=== PATIENT | male | born 1945 | race Caucasian/White ===

== ENCOUNTER 2022-12-16 09:40 | Inpatient (IN) ==
[2022-12-16] MEDS ORDERED: IOPAMIDOL 100 ML BOTTLE IV ONE (09:41)
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
[2022-12-16] MEDS ORDERED: 0.9 % SODIUM CHLORIDE 1,000 ML IV ONE (10:41)
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
[2022-12-16 11:14] LABS: POC Calcium, Ionized 1.12 (1.16-1.32); POC Creatinine 1.1 (0.6-1.2); POC Potassium 4.1 (3.3-5.1)
[2022-12-16 11:57] LABS: Basophils # (Auto) 0.02 K/mcL (0.00-0.30); Basophils % (Auto) 0.3 % (0.0-2.0); Eosinophils # (Auto) 0.19 K/mcL (0.00-0.70); Eosinophils % (Auto) 2.5 % (0.0-7.0); Hematocrit 42.9 % (40.1-51.0); Hemoglobin 14.3 g/dL (13.7-17.5); Lymphocytes # (Auto) 1.05 K/mcL (1.50-4.80); Lymphocytes % (Auto) 13.8 % (15.5-49.0); Mean Cell Volume 90.9 fL (80.0-100.0); Mean Corpuscular HGB Conc 33.3 g/dL (31.0-36.0); Mean Platelet Volume 10.3 fL (8.8-12.5); Monocytes # (Auto) 0.87 K/mcL (0.10-0.90); Monocytes % (Auto) 11.4 % (1.0-12.0); Neutrophils % (Auto) 71.6 % (38.0-78.0); Platelet Count 173 K/mcL (140-440); RBC 4.72 M/mcL (4.63-6.08); Red Cell Distribution Width 13.7 % (11.5-14.5); WBC 7.6 K/mcL (4.5-11.0)
--- NOTE | 2022-12-16 12:03 | Cat Scan Report ---
INDICATION: perineal/scrotal abscess COMPARISON: None. TECHNIQUE: Axial images were obtained through the pelvis. Sagittally and coronally reformatted images. 90 mLml Isovue 370 injected intravenously. Oral contrast material was not administered FINDINGS: Superficial abnormality of the perineum. There is subcutaneous soft tissue density consistent with cellulitis. There is soft tissue gas which is left of the intergluteal crease. This is consistent with necrotizing fasciitis, so-called Nara's gangrene. There is no deep extension to the pelvis or perianal soft tissues. There is no abscess. No intrapelvic abnormality. There is no free fluid or pelvic abscess. Sigmoid colon is negative. There is no diverticulitis. There is diverticulosis. Vascular structures are normal. Distal abdominal aorta is normal. There is calcified plaque in the common iliac arteries and external iliac arteries. There is no stenosis or aneurysm. There is no osteomyelitis. Sacrum and pelvis are negative. Hips are negative. This patient did complain of a possible scrotal abscess. No focal scrotal fluid collection identified. No detectable scrotal abscess. If clinically indicated testicular ultrasound be considered Emergency room was called with these results, 12/16/2022, 12:00 IMPRESSION: 1. 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 Soft tissue gas is to the left of the intergluteal cleft 3. No soft tissue abscess. There is increased density consistent with cellulitis 4. No intrapelvic abnormality The exam was performed using radiation dose optimization techniques including, but not limited to, automated exposure control, adjustment of the mA and/or kV according to patient size and use of iterative reconstruction technique. Interpreted and Authenticated by: Tariq Ruiz 12/16/22
[2022-12-16] MEDS ORDERED: VANCOMYCIN 2,000 MG in 0.9 % SODIUM CHLORIDE 500 ML IV ONE (12:10)
[2022-12-16 12:11] LABS: ALT/SGPT 44 U/L (<40); AST/SGOT 33 U/L (<40); Albumin 3.7 gm/dL (3.2-5.2); Alkaline Phosphatase 68 U/L (39-117); Bilirubin,Direct 0.3 mg/dL (<0.3); Globulin 3.1 gm/dL (2.2-3.7)
[2022-12-16 12:12] LABS: Erythrocyte Sedimentation Rate 34 mm/hr (0-20)
[2022-12-16] MEDS ORDERED: CLINDAMYCIN IN 0.9 % SOD CHLOR 900 MG/50 ML BAG IV ONE (12:13)
[2022-12-16] MEDS ORDERED: MEROPENEM 1 GM in 0.9 % SODIUM CHLORIDE 50 ML IV ONE (12:15)
[2022-12-16] MEDS ORDERED: PHYTONADIONE 10 MG in 0.9 % SODIUM CHLORIDE 50 ML IV ONE (13:25)
[2022-12-16] MEDS ORDERED: HUM PROTHROMBIN CPLX IV ONE (13:25)
[2022-12-16] MEDS ORDERED: [UNRECOGNIZED DRUG - OTHER] IV ONE (13:25)
[2022-12-16 13:27] LABS: INR 2.2 (0.9-1.1); Prothrombin Time 25.2 sec (11.9-14.5)
[2022-12-16] MEDS ORDERED: 0.9 % SODIUM CHLORIDE 250 ML IV SCH ×2 (13:30→13:45)
--- NOTE | 2022-12-16 13:33 | XRay Report ---
INDICATION: PRE OP TECHNIQUE: AP portable semiupright chest x-ray COMPARISON: Previous chest x-ray dated 11/08/2022 FINDINGS: Lungs:Lungs are negative. No focal pulmonary parenchymal infiltrate or mass Heart, vascular:No significant cardiomegaly. Pulmonary vascularity is normal. No pulmonary edema or pulmonary congestion Mediastinum, tra:No mediastinal widening. No hilar mass Pleura:Mildly elevated right hemidiaphragm, chronic Skeletal:Negative. IMPRESSION: 1. Negative AP chest x-ray 2. No interval change since 11/08/2022 Interpreted and Authenticated by: Tariq Ruiz 12/16/22
[2022-12-16 13:41] LABS: POC INR 2.9 (0.8-1.2); POC Pro Time 32.8 (11.9-14.5)
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
[2022-12-16] MEDS ORDERED: [UNRECOGNIZED DRUG - OTHER] IV SCH (13:45)
[2022-12-16] MEDS ORDERED: HUM PROTHROMBIN CPLX IV SCH (13:45)
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
[2022-12-16] MEDS ORDERED: POTASSIUM CHLORIDE 40 MEQ in DEXTROSE 5% IN WATER 500 ML IV PRN (14:05)
[2022-12-16] MEDS ORDERED: SENNOSIDES 1 TABLET PO PRN (14:05)
[2022-12-16] MEDS ORDERED: MAGNESIUM SULFATE 2 GM/50 ML BAG IV PRN (14:05)
[2022-12-16] MEDS ORDERED: POLYETHYLENE GLYCOL 3350 17 GM PACKET PO PRN (14:05)
[2022-12-16] MEDS ORDERED: ONDANSETRON 4 MG/2 ML VIAL IV PRN ×2 (14:05→16:54)
[2022-12-16] MEDS ORDERED: POTASSIUM CHLORIDE 20 MEQ TABLET PO PRN ×2 (14:05)
[2022-12-16 14:28] LABS: Appearance,Urine CLEAR (Clear); Bilirubin,Urine Negative (Negative); Color,Urine YELLOW; Culture Indicated,Urine No; Glucose,Urine (UA) Negative (Negative); Ketones,Urine Negative (Negative); Leukocyte Esterase,Urine Negative /uL (Negative); Mucus,Urine FEW /hpf; Nitrate,Urine Negative (Negative); Protein,Urine 30 mg/dL (Negative); Specific Gravity,Urine 1.055 (1.000-1.035); Urine Blood Negative (Negative); Urine RBC 1 /hpf (0-3); Urine Squamous Epithelial Cell < 1 /hpf (0-4); Urine WBC 1 /hpf (0-4)
[2022-12-16 15:59] LABS: POC INR 1.5 (0.8-1.2); POC Pro Time 17.3 (11.9-14.5)
[2022-12-16] MEDS ORDERED: ROCURONIUM 10 MG/ML ML IV ONE (16:18)
[2022-12-16] MEDS ORDERED: PROPOFOL 200 MG/20 ML VIAL IV ONE (16:18)
[2022-12-16] MEDS ORDERED: fentaNYL 100 MCG/2 ML VIAL IV ONE ×2 (16:18→17:34)
[2022-12-16] MEDS ORDERED: SUGAMMADEX SODIUM 200 MG/2 ML VIAL IV ONE (16:18)
[2022-12-16] MEDS ORDERED: ONDANSETRON 4 MG/2 ML VIAL ONE (16:18)
[2022-12-16] MEDS ORDERED: LIDOCAINE HCL/PF 100 MG/5 ML SYRINGE IV ONE (16:18)
[2022-12-16] MEDS ORDERED: HYDROmorphone 1 MG/ML SYRINGE ONE (16:18)
[2022-12-16] MEDS ORDERED: NALOXONE HCL 0.4 MG/ML VIAL IV PRN (16:54)
[2022-12-16] MEDS ORDERED: IPRATROPIUM/ALBUTEROL 3 ML AMPUL.NEB NEB PRN (16:54)
[2022-12-16] MEDS ORDERED: HYDROmorphone 0.5 MG/0.5 ML SYRINGE IV PRN (16:54)
[2022-12-16] MEDS ORDERED: ACETAMINOPHEN 1,000 MG/100 ML BAG IV ONE (16:54)
[2022-12-16] MEDS: fentaNYL 100 MCG/2 ML VIAL IV PRN ×4 (17:34→17:48)
[2022-12-16] MEDS ORDERED: VANCOMYCIN PER PHARMACY IV ONE (18:58)
[2022-12-16] MEDS ORDERED: ALBUTEROL SULFATE 60 PUFF INHALER INH PRN (19:06)
--- NOTE | 2022-12-16 19:15 | Brief Operative Note ---
Brief Operative Note Date of procedure: 12/16/22 Pre-op diagnosis: Nara's Gangrene Post-op diagnosis: same Procedure: Examination Under Anesthesia with Incision, Drainage and Debridement of Perineal Nara's Gangrene Grafts/Implants: No Anesthesia: GETA Findings: Nara's Gangrene with epicenter of infection at the base of the Left Hemiscrotum extending into the Left Inguinal Crease and Left Medial Gluteal Region Debridement of all visible necrotic tissue with extensive unroofing, cultures and packing Complications: none Surgeon: Godwin Murry Estimated blood loss (cc): 25 Specimens Removed/Pathology: other (culture swabs sent for gram stain and culture ) Condition: stable Disposition: PACU
[2022-12-16] MEDS: DEXTROSE 5%-LR 1,000 ML IV SCH (19:29)
[2022-12-16] MEDS: ASCORBIC ACID 500 MG TABLET PO SCH (20:52)
[2022-12-16] MEDS: SIMVASTATIN 10 MG TABLET PO SCH (20:52)
[2022-12-16] MEDS: DOCUSATE SODIUM 100 MG CAPSULE PO SCH (20:52)
[2022-12-16] MEDS ORDERED: MEROPENEM 0.5 GM in 0.9 % SODIUM CHLORIDE 50 ML IV SCH (21:00)
[2022-12-16] MEDS: CLINDAMYCIN IN 0.9 % SOD CHLOR 900 MG/50 ML BAG IV SCH (21:17)
[2022-12-16] MEDS: 0.9 % SODIUM CHLORIDE 10 ML SYRINGE IV SCH (22:24)
[2022-12-17] MEDS: CLINDAMYCIN IN 0.9 % SOD CHLOR 900 MG/50 ML BAG IV SCH ×4 (01:52→21:47)
[2022-12-17] MEDS: MEROPENEM 1 GM in 0.9 % SODIUM CHLORIDE 50 ML IV SCH ×3 (05:06→22:45)
[2022-12-17] MEDS: DEXTROSE 5%-LR 1,000 ML IV SCH ×2 (05:11→15:38)
[2022-12-17] MEDS: 0.9 % SODIUM CHLORIDE 10 ML SYRINGE IV SCH ×4 (05:19→21:51)
[2022-12-17 06:47] LABS: Basophils # (Auto) 0.01 K/mcL (0.00-0.30); Basophils % (Auto) 0.2 % (0.0-2.0); Eosinophils # (Auto) 0.15 K/mcL (0.00-0.70); Eosinophils % (Auto) 2.4 % (0.0-7.0); Hematocrit 39.7 % (40.1-51.0); Hemoglobin 13.2 g/dL (13.7-17.5); Lymphocytes # (Auto) 0.53 K/mcL (1.50-4.80); Lymphocytes % (Auto) 8.4 % (15.5-49.0); Mean Cell Volume 92.8 fL (80.0-100.0); Mean Corpuscular HGB Conc 33.2 g/dL (31.0-36.0); Mean Platelet Volume 10.9 fL (8.8-12.5); Monocytes # (Auto) 0.64 K/mcL (0.10-0.90); Monocytes % (Auto) 10.1 % (1.0-12.0); Neutrophils % (Auto) 78.7 % (38.0-78.0); Platelet Count 161 K/mcL (140-440); RBC 4.28 M/mcL (4.63-6.08); Red Cell Distribution Width 13.8 % (11.5-14.5); WBC 6.3 K/mcL (4.5-11.0)
[2022-12-17] MEDS: VANCOMYCIN 1,000 MG in 0.9 % SODIUM CHLORIDE 250 ML IV SCH ×2 (07:10→17:25)
[2022-12-17] MEDS ORDERED: VANCOMYCIN PER PHARMACY IV SCH (07:15)
[2022-12-17 07:31] LABS: ALT/SGPT 42 U/L (<40); AST/SGOT 34 U/L (<40); Albumin 3.2 gm/dL (3.2-5.2); Albumin/Globulin Ratio 1.1 (1.0-2.3); Alkaline Phosphatase 73 U/L (39-117); Bilirubin,Direct 0.3 mg/dL (<0.3); Bilirubin,Total 1.2 mg/dL (0.1-1.0); Blood Urea Nitrogen 16 mg/dL (8-23); Calcium 8.2 mg/dL (8.6-10.4); Carbon Dioxide 21 mmol/L (22-30); Chloride 104 mmol/L (96-108); Globulin 2.9 gm/dL (2.2-3.7); Glomerular Filtration Rate 83; Glucose 121 mg/dL (70-105); Lactate Dehydrogenase 258 U/L (135-225); Phosphorous 2.8 mg/dL (2.5-4.5); Triglycerides 119 mg/dL (<150); Uric Acid 6.2 mg/dL (2.5-8.0)
[2022-12-17 07:34] LABS: INR 1.2 (0.9-1.1); Prothrombin Time 15.4 sec (11.9-14.5)
--- NOTE | 2022-12-17 08:08 | EKG ---
[facility] Test Date: 2022-12-16 Pat Name: Todd Garcia Department: ED Room: Gender: Male Cover Operator: : 1945 Requested By: Gabriela Miranda Order Number: [id number] Reading MD: Tariq Quiros M.D. Measurements Intervals [place] Rate: 71 P: 27 DC: 192 QRS: -15 QRSD: 121 T: 36 QT: 403 QTc: 439 Interpretive Statements Sinus arrhythmia Electronically Signed On 12-17-2022 8:08:06 PDT by Tariq Quiros M.D. /store/M0/[id number]
--- NOTE | 2022-12-17 08:32 | Internal Med Progress Note ---
SUBJECTIVE Subjective Patient information: Note initiated : 12/17/22 at 8:28 am Service Date, if different from initiated Date: [] Patient: Todd Garcia 77 y/o M admitted on 12/16/22 for Gangrene Perineum. Chief Complaint: [] Interval history: Chief Complaint: [] cc:: CC: pt presents to ED with rectal/perineum pain and swelling and redness. He first went to see his electrostatic painter on Saturday and was given an antibiotic, Possibly diagnosed with furuncle. But he has had increased swelling to been spreading of the redness and increased pain and presents back to the ED. He complains of chills but no fevers. Is painful to sit for long periods of time. He had some discharge as well. 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 Dr. Murry was contacted. Patient be taken to the OR for debridement today. Patient has history of DVT hypertension obesity. Hospitalist consulted for comanagement. Patient started on antibiotics and IV fluids in the ED. Patient does take warfarin for history of DVT and currently in the process of being reversed 12/17 Patient slept okay. Feels constipated. Some discomfort around the surgical site but pain relatively controlled. Patient had I&D of necrotic perineal tissue yesterday. We will start him on Lovenox twice daily instead of warfarin until further debridements ruled out. Review of Systems: Pertinent positives as above. Denies headache/fever/nausea/vomiting/chest or abdominal pain/cough/dyspnea/diarrhea. PHYSICAL EXAM General: Alert, Awake, No acute Distress, obese Eyes/N/T: EOMI, no scleral icterus, Head/Neck: neck supple, full ROM, CV: RRR, No murmurs, Pulm: Clear b/l, no wheezing/rhonchi/rales, no respiratory distress Abd: soft, nontender, +BS x4 Ext: no clubbing/cyanosis/edema, nontender Neuro: Alert, no focal deficits, moves all extremities, , sensations intact b/l upper/lower Psychiatric: Skin: warm/dry, normal color Constitutional Vitals: Vital Signs Temp Pulse Resp BP Pulse Ox O2 Del Method O2 Flow Rate 98.9 F 81 20 125/72 94 Nasal Cannula 2 12/17/22 07:31 12/17/22 07:31 12/17/22 07:31 12/17/22 07:31 12/17/22 07:31 12/17/22 07:31 12/17/22 07:31 Period Temp Pulse Resp BP Sys/Stinson Pulse Ox O2 Del Method O2 Flow Rate Last 24 Hr 98 F-99.6 F 60-85 14-25 81-147/63-105 91-100 Nasal Cannula- Room Air 2-5 Intake and Output 12/16/22 12/17/22 12/17/22 19:59 03:59 11:59 Intake Total 2351 550 1020 Output Total 315 450 Balance 2036 100 1020 Weight 120.973 kg Intake & Output: Intake & Output 12/16/22 12/17/22 12/17/22 19:59 03:59 11:59 Intake Total 2351 550 1020 Output Total 315 450 Balance 2036 100 1020 Weight 120.973 kg Intake: IV 6661 510 2717 Sodium Chloride 0.9% 1,000 ml @ 1000 Wide Open IV .Q0M ONE Rx#: [id number] Dextrose 5%-Lactated Ringers 1, 970 000 ml @ 100 mls/hr IV .Q10H [facility] Rx#:[id number] Kcentra 1 Unit 2,094 Unit In 0 Premix 1 Bag @ 0 mls/hr IV ONCE [facility] Rx#:[id number] Merrem 1 gm In Sodium Chloride 50 50 50 0.9% 50 ml @ 100 mls/hr IV Q8H [facility] Rx#:[id number] Aquamephyton 10 mg In Sodium 51 Chloride 0.9% 50 ml @ 153 mls/ hr IV ONCE ONE Rx#:[id number] Vancomycin 2,000 mg In Sodium 500 Chloride 0.9% 500 ml @ 250 mls/ hr IV ONCE ONE Rx#:[id number] Oral 400 IV - Manual Only 600 Output: Urine Catheter Amount 300 450 Estimated Blood Loss 15 Other: Urine Appearance Clear Uretheral (Shirley) Clear Urine Color Dark Kitty Dark Kitty Uretheral (Shirley) Dark Yellow Urine Odor Normal OBJ DATA Labs 12/17/22 05:17 12/17/22 05:17 Labs: Abnormal Lab Results 12/17/22 12/17/22 12/17/22 05:17 05:17 05:16 RBC 4.28 L Hgb 13.2 L Hct 39.7 L Neut % (Auto) 78.7 H Lymph % (Auto) 8.4 L Lymph # (Auto) 0.53 L ESR POC PT PT 15.4 H POC INR INR 1.2 H POC VBG pCO2 at Temp POC VBG pO2 POC VBG HCO3 POC VBG Total CO2 POC Venous O2 Sat POC VBG Base Excess Carbon Dioxide 21 L POC BUN Glucose 121 H POC Glucose Calcium 8.2 L POC WB Ioniz Calcium Total Bilirubin 1.2 H Direct Bilirubin 0.3 H ALT 42 H Lactate Dehydrogenase 258 H C-Reactive Protein Procalcitonin Urine Protein Urine Urobilinogen Urine Mucus 12/16/22 12/16/22 12/16/22 15:57 13:38 13:30 RBC Hgb Hct Neut % (Auto) Lymph % (Auto) Lymph # (Auto) ESR POC PT 17.3 H 32.8 H PT POC INR 1.5 H 2.9 H INR POC VBG pCO2 at Temp POC VBG pO2 POC VBG HCO3 POC VBG Total CO2 POC Venous O2 Sat POC VBG Base Excess Carbon Dioxide POC BUN Glucose POC Glucose Calcium POC WB Ioniz Calcium Total Bilirubin Direct Bilirubin ALT Lactate Dehydrogenase C-Reactive Protein Procalcitonin Urine Protein 30 A Urine Urobilinogen 2.0 A Urine Mucus Few A 12/16/22 12/16/22 12/16/22 12:32 11:14 11:14 RBC Hgb Hct Neut % (Auto) Lymph % (Auto) Lymph # (Auto) ESR POC PT PT 25.2 H POC INR INR 2.2 H POC VBG pCO2 at Temp 32.7 L POC VBG pO2 47 H POC VBG HCO3 21.1 L POC VBG Total CO2 22.0 L POC Venous O2 Sat 84.0 H POC VBG Base Excess -3.0 L Carbon Dioxide POC BUN Glucose POC Glucose Calcium POC WB Ioniz Calcium Total Bilirubin Direct Bilirubin ALT Lactate Dehydrogenase C-Reactive Protein Procalcitonin 0.20 H Urine Protein Urine Urobilinogen Urine Mucus 12/16/22 12/16/22 12/16/22 11:14 11:14 11:09 RBC Hgb Hct Neut % (Auto) Lymph % (Auto) 13.8 L Lymph # (Auto) 1.05 L ESR 34 H POC PT PT POC INR INR POC VBG pCO2 at Temp POC VBG pO2 POC VBG HCO3 POC VBG Total CO2 POC Venous O2 Sat POC VBG Base Excess Carbon Dioxide POC BUN 25 H Glucose POC Glucose 110 H Calcium POC WB Ioniz Calcium 1.12 L Total Bilirubin Direct Bilirubin 0.3 H ALT 44 H Lactate Dehydrogenase C-Reactive Protein 13.10 H Procalcitonin Urine Protein Urine Urobilinogen Urine Mucus Meds: Medications Albuterol Sulfate (Albuterol Sulfate 60 Puff Inhaler) 2 puff INH Q6HP PRN PRN Reason: shortness of breath or wheezing Albuterol/Ipratropium (Ipratropium/Albuterol 3 Ml Ampul.Neb) 3 ml NEB Q4HP PRN PRN Reason: Shortness Of Breath Ascorbic Acid (Ascorbic Acid 500 Mg Tablet) 1,000 mg PO Q12H [facility] Last Admin: 12/16/22 20:52 Dose: 1,000 mg Calcium/Vitamin D (Calcium W/Vit D3 500 Mg Tablet) 500 mg PO QDAY [facility] Docusate Sodium (Docusate Sodium 100 Mg Capsule) 100 mg PO BID [facility] Last Admin: 12/16/22 20:52 Dose: 100 mg Hydromorphone HCl (Hydromorphone 0.5 Mg/0.5 Ml Syringe) 0.5 - 1 mg IV Q1HP PRN; Protocol PRN Reason: Per Pain Protocol Potassium Chloride 40 meq/ (Dextrose) 520 mls @ 130 mls/hr IV UD PRN PRN Reason: Potassium < 3 Magnesium Sulfate (Magnesium Sulfate) 2 gm in 50 mls @ 50 mls/hr IV UD PRN PRN Reason: Magnesium </= 1.6 Dextrose/Lactated Ringer's (Dextrose 5%-Lactated Ringers) 1,000 mls @ 100 mls/hr IV .Q10H [facility] Last Admin: 12/17/22 05:11 Dose: 100 mls/hr CLINDAMYCIN IN 0.9 % SOD CHLOR (Clindamycin 900 Mg/50 Ml-Ns) 900 mg in 50 mls @ 100 mls/hr IV Q6H [facility] Last Infusion: 12/17/22 02:35 Dose: Infused Vancomycin HCl 1,000 mg/ (Sodium Chloride) 250 mls @ 250 mls/hr IV Q12H [facility] Last Admin: 12/17/22 07:10 Dose: 250 mls/hr Meropenem 1 gm/ Sodium (Chloride) 50 mls @ 100 mls/hr IV Q8H [facility]; Protocol Last Infusion: 12/17/22 06:05 Dose: Infused Magnesium Oxide (Magnesium Oxide 400 Mg Tablet) 200 mg PO QDAY JOSEPH Ondansetron HCl (Ondansetron 4 Mg/2 Ml Vial) 4 mg IV Q4HP PRN PRN Reason: Nausea And Vomiting Oxycodone HCl (Oxycodone Ir 5 Mg Tablet) 5 - 10 mg PO Q4-6HP PRN; Protocol PRN Reason: Per Pain Protocol Polyethylene Glycol (Polyethylene Glycol 3350 17 Gm Packet) 17 gm PO DAILYP PRN PRN Reason: Constipation Potassium Chloride (Potassium Chloride 20 Meq Tablet) 40 meq PO UD PRN PRN Reason: Potssium is 3-3.5 Potassium Chloride (Potassium Chloride 20 Meq Tablet) 40 meq PO UD PRN PRN Reason: Potassium < 3 Senna (Sennosides 1 Tablet) 2 tab PO DAILYP PRN PRN Reason: Constipation Simvastatin (Simvastatin 10 Mg Tablet) 10 mg PO HS [facility] Last Admin: 12/16/22 20:52 Dose: 10 mg Sodium Chloride (0.9 % Sodium Chloride 10 Ml Syringe) 10 ml IV Q8 [facility] Last Admin: 12/17/22 05:19 Dose: 10 ml Vancomycin HCl (Vancomycin Per Pharmacy) 1 order IV UD [facility]; Protocol Vitamin D (Vitamin D3 25 Mcg Tablet) 25 mcg PO QDAY JOSEPH Zinc Sulfate (Zinc Sulfate 50 Mg Capsule) 50 mg PO QDAY [facility] A/P Narrative A/P Narrative: A: *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 Murry for wound mgmnt -IV antibiotics pending surgical cultures -Monitor vitals closely -prn QHS cpap -restart home norvasc/ARB, hold HCTZ for now -cont statin -Bowel regimen -PT/OT -CM for placement needs -ppx: lovenox bid (warfarin held until further I&D r/o) Time Spent With Patient Time: Total time spent is greater than 50% in coordination of care (as documented) at patient's floor/unit and/or counseling patient: Subsequent: Total time with patient: 50 - 65 Minutes QUALITY VTE Deep Vein Thrombosis/Pulmonary Embolism Present on Admission: No
[2022-12-17] MEDS: VITAMIN D3 25 MCG TABLET PO SCH (09:08)
[2022-12-17] MEDS: ZINC SULFATE 50 MG CAPSULE PO SCH (09:08)
[2022-12-17] MEDS: oxyCODONE IR 5 MG TABLET PO PRN ×2 (09:08→13:57)
[2022-12-17] MEDS: DOCUSATE SODIUM 100 MG CAPSULE PO SCH ×2 (09:08→21:48)
[2022-12-17] MEDS: MAGNESIUM OXIDE 400 MG TABLET PO SCH (09:08)
[2022-12-17] MEDS: CALCIUM W/VIT D3 500 MG TABLET PO SCH (09:08)
[2022-12-17] MEDS: HYDROmorphone 0.5 MG/0.5 ML SYRINGE IV PRN ×2 (09:11→13:56)
[2022-12-17] MEDS: ENOXAPARIN 100 MG/ML SYRINGE SQ SCH ×2 (09:11→21:50)
[2022-12-17] MEDS: POLYETHYLENE GLYCOL 3350 17 GM PACKET PO SCH (09:22)
[2022-12-17] MEDS: amLODIPine 5 MG TABLET PO SCH ×2 (09:25→21:49)
[2022-12-17] MEDS: ASCORBIC ACID 500 MG TABLET PO SCH ×2 (09:26→21:50)
[2022-12-17] MEDS: SIMVASTATIN 10 MG TABLET PO SCH (21:50)
--- NOTE | 2022-12-17 23:56 | General Surgery Progress Note ---
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 Chief Complaint: [] Has been ambulating today, has some pain in the surgical area, denies any major other issues Constitutional Vitals: Vital Signs Temp Pulse Resp BP Pulse Ox O2 Del Method O2 Flow Rate 98.0 F 71 18 120/64 94 Nasal Cannula 1 12/17/22 20:00 12/17/22 21:45 12/17/22 20:00 12/17/22 21:45 12/17/22 20:00 12/17/22 20:00 12/17/22 20:00 Period Temp Pulse Resp BP Sys/Stinson Pulse Ox O2 Del Method O2 Flow Rate Last 24 Hr 98.0 F-99.6 F 71-81 16-20 110-132/62-72 94-95 Nasal Cannula- Nasal Cannula 1-2 Intake and Output 12/17/22 12/17/22 12/18/22 11:59 19:59 03:59 Intake Total 1502 350 50 Output Total 650 575 Balance 1502 -300 -525 Weight 273 lb 1.6 oz Patient Weight 12/18/22 03:59 Weight 273 lb 1.6 oz Intake & Output: Intake & Output 12/17/22 12/17/22 12/18/22 11:59 19:59 03:59 Intake Total 1502 350 50 Output Total 650 575 Balance 1502 -300 -525 Weight 273 lb 1.6 oz Intake: IV 1502 350 50 Dextrose 5%-Lactated Ringers 1, 1152 0 000 ml @ 100 mls/hr IV .Q10H [facility] Rx#:[id number] Merrem 1 gm In Sodium Chloride 50 50 0.9% 50 ml @ 100 mls/hr IV Q8H JOSE[facility] Rx#:[id number] Vancomycin 1,000 mg In Sodium 250 250 Chloride 0.9% 250 ml @ 250 mls/ hr IV Q12H [facility] Rx#:[id number] Output: Urine Catheter Amount 650 575 Other: Urine Appearance Clear Clear Uretheral (Shirley) Clear Urine Color Tea Colored Brown Uretheral (Shirley) Yellow Exam: looks well, non toxic, NAD Additional comments: the dressing and packing are checked and changed out. 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
[2022-12-18] MEDS: CLINDAMYCIN IN 0.9 % SOD CHLOR 900 MG/50 ML BAG IV SCH ×4 (03:10→19:57)
[2022-12-18] MEDS: DEXTROSE 5%-LR 1,000 ML IV SCH (03:43)
[2022-12-18] MEDS: MEROPENEM 1 GM in 0.9 % SODIUM CHLORIDE 50 ML IV SCH ×3 (05:52→22:17)
[2022-12-18] MEDS: 0.9 % SODIUM CHLORIDE 10 ML SYRINGE IV SCH ×5 (05:53→22:17)
[2022-12-18] MEDS: VANCOMYCIN 1,000 MG in 0.9 % SODIUM CHLORIDE 250 ML IV SCH ×2 (06:40→17:02)
[2022-12-18 06:50] LABS: INR 1.1 (0.9-1.1); Prothrombin Time 15.1 sec (11.9-14.5)
--- NOTE | 2022-12-18 08:14 | Internal Med Progress Note ---
SUBJECTIVE Subjective Patient information: Note initiated : 12/18/22 at 8:11 am Service Date, if different from initiated Date: [] Patient: Todd Garcia 77 y/o M admitted on 12/16/22 for Gangrene Perineum. Chief Complaint: [] Interval history: Chief Complaint: [] cc:: CC: pt presents to ED with rectal/perineum pain and swelling and redness. He first went to see his global director air and climate change on Saturday and was given an antibiotic, Possibly diagnosed with furuncle. But he has had increased swelling to been spreading of the redness and increased pain and presents back to the ED. He complains of chills but no fevers. Is painful to sit for long periods of time. He had some discharge as well. 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 Dr. Murry was contacted. Patient be taken to the OR for debridement today. Patient has history of DVT hypertension obesity. Hospitalist consulted for comanagement. Patient started on antibiotics and IV fluids in the ED. Patient does take warfarin for history of DVT and currently in the process of being reversed 12/17 Patient slept okay. Feels constipated. Some discomfort around the surgical site but pain relatively controlled. Patient had I&D of necrotic perineal tissue yesterday. We will start him on Lovenox twice daily instead of warfarin until further debridements ruled out. 12/18 Mediocre sleep which is normal for him. No overnight event or new complaints. No leukocytosis on follow-up labs. pt Developing lower extremity, will stop IV fluids. Review of Systems: Pertinent positives as above. Denies headache/fever/nausea/vomiting/chest or abdominal pain/cough/dyspnea/diarrhea. PHYSICAL EXAM General: Alert, Awake, No acute Distress, obese Eyes/N/T: EOMI, no scleral icterus, Head/Neck: neck supple, full ROM, CV: RRR, No murmurs, Pulm: Clear b/l, no wheezing/rhonchi/rales, no respiratory distress Abd: soft, nontender, +BS x4 Ext: no clubbing/cyanosis, 1+ b/l LE edema, nontender Neuro: Alert, no focal deficits, moves all extremities, , sensations intact b/l upper/lower Psychiatric: Skin: warm/dry, normal color Constitutional Vitals: Vital Signs Temp Pulse Resp BP Pulse Ox O2 Del Method O2 Flow Rate 98.5 F 77 18 107/61 94 Nasal Cannula 1 12/18/22 03:45 12/18/22 03:45 12/18/22 03:45 12/18/22 03:45 12/18/22 06:00 12/18/22 06:00 12/18/22 06:00 Period Temp Pulse Resp BP Sys/Stinson Pulse Ox O2 Del Method O2 Flow Rate Last 24 Hr 98.0 F-99.1 F 71-80 16-18 107-132/61-71 93-94 Nasal Cannula- Nasal Cannula 1-1 Intake and Output 12/17/22 12/18/22 12/18/22 19:59 03:59 11:59 Intake Total 350 1950 300 Output Total 650 2225 750 Balance -300 -275 -450 Weight 123.876 kg Intake & Output: Intake & Output 12/17/22 12/18/22 12/18/22 19:59 03:59 11:59 Intake Total 350 1950 300 Output Total 650 2225 750 Balance -300 -275 -450 Weight 123.876 kg Intake: IV 350 1150 300 Dextrose 5%-Lactated Ringers 1, 0 1000 000 ml @ 100 mls/hr IV .Q10H [facility] Rx#:[id number] Merrem 1 gm In Sodium Chloride 50 50 50 0.9% 50 ml @ 100 mls/hr IV Q8H JOSE[facility] Rx#:[id number] Vancomycin 1,000 mg In Sodium 250 250 Chloride 0.9% 250 ml @ 250 mls/ hr IV Q12H JSOEPH Rx#:[id number] Oral 800 Output: Urine Catheter Amount 650 2225 750 Other: Urine Appearance Clear Clear Clear Uretheral (Shirley) Clear Urine Color Tea Colored Yellow Yellow Uretheral (Shirley) Yellow Urine Odor Normal Normal OBJ DATA Labs 12/18/22 05:32 12/18/22 05:32 Labs: Abnormal Lab Results 12/18/22 12/17/22 12/17/22 05:32 05:17 05:17 RBC 4.28 L Hgb 13.2 L Hct 39.7 L Neut % (Auto) 78.7 H Lymph % (Auto) 8.4 L Lymph # (Auto) 0.53 L ESR POC PT PT 15.1 H POC INR INR POC VBG pCO2 at Temp POC VBG pO2 POC VBG HCO3 POC VBG Total CO2 POC Venous O2 Sat POC VBG Base Excess Carbon Dioxide 21 L POC BUN Glucose 121 H POC Glucose Calcium 8.2 L POC WB Ioniz Calcium Total Bilirubin 1.2 H Direct Bilirubin 0.3 H ALT 42 H Lactate Dehydrogenase 258 H C-Reactive Protein Procalcitonin Urine Protein Urine Urobilinogen Urine Mucus 12/17/22 12/16/22 12/16/22 05:16 15:57 13:38 RBC Hgb Hct Neut % (Auto) Lymph % (Auto) Lymph # (Auto) ESR POC PT 17.3 H 32.8 H PT 15.4 H POC INR 1.5 H 2.9 H INR 1.2 H POC VBG pCO2 at Temp POC VBG pO2 POC VBG HCO3 POC VBG Total CO2 POC Venous O2 Sat POC VBG Base Excess Carbon Dioxide POC BUN Glucose POC Glucose Calcium POC WB Ioniz Calcium Total Bilirubin Direct Bilirubin ALT Lactate Dehydrogenase C-Reactive Protein Procalcitonin Urine Protein Urine Urobilinogen Urine Mucus 12/16/22 12/16/22 12/16/22 13:30 12:32 11:14 RBC Hgb Hct Neut % (Auto) Lymph % (Auto) Lymph # (Auto) ESR POC PT PT 25.2 H POC INR INR 2.2 H POC VBG pCO2 at Temp 32.7 L POC VBG pO2 47 H POC VBG HCO3 21.1 L POC VBG Total CO2 22.0 L POC Venous O2 Sat 84.0 H POC VBG Base Excess -3.0 L Carbon Dioxide POC BUN Glucose POC Glucose Calcium POC WB Ioniz Calcium Total Bilirubin Direct Bilirubin ALT Lactate Dehydrogenase C-Reactive Protein Procalcitonin Urine Protein 30 A Urine Urobilinogen 2.0 A Urine Mucus Few A 12/16/22 12/16/22 12/16/22 11:14 11:14 11:14 RBC Hgb Hct Neut % (Auto) Lymph % (Auto) 13.8 L Lymph # (Auto) 1.05 L ESR 34 H POC PT PT POC INR INR POC VBG pCO2 at Temp POC VBG pO2 POC VBG HCO3 POC VBG Total CO2 POC Venous O2 Sat POC VBG Base Excess Carbon Dioxide POC BUN Glucose POC Glucose Calcium POC WB Ioniz Calcium Total Bilirubin Direct Bilirubin 0.3 H ALT 44 H Lactate Dehydrogenase C-Reactive Protein 13.10 H Procalcitonin 0.20 H Urine Protein Urine Urobilinogen Urine Mucus 12/16/22 11:09 RBC Hgb Hct Neut % (Auto) Lymph % (Auto) Lymph # (Auto) ESR POC PT PT POC INR INR POC VBG pCO2 at Temp POC VBG pO2 POC VBG HCO3 POC VBG Total CO2 POC Venous O2 Sat POC VBG Base Excess Carbon Dioxide POC BUN 25 H Glucose POC Glucose 110 H Calcium POC WB Ioniz Calcium 1.12 L Total Bilirubin Direct Bilirubin ALT Lactate Dehydrogenase C-Reactive Protein Procalcitonin Urine Protein Urine Urobilinogen Urine Mucus Meds: Medications Albuterol Sulfate (Albuterol Sulfate 60 Puff Inhaler) 2 puff INH Q6HP PRN PRN Reason: shortness of breath or wheezing Albuterol/Ipratropium (Ipratropium/Albuterol 3 Ml Ampul.Neb) 3 ml NEB Q4HP PRN PRN Reason: Shortness Of Breath Amlodipine Besylate (Amlodipine 5 Mg Tablet) 5 mg PO BID [facility] Last Admin: 12/17/22 21:49 Dose: 5 mg Ascorbic Acid (Ascorbic Acid 500 Mg Tablet) 1,000 mg PO Q12H [facility] Last Admin: 12/17/22 21:50 Dose: 1,000 mg Calcium/Vitamin D (Calcium W/Vit D3 500 Mg Tablet) 500 mg PO QDAY [facility] Last Admin: 12/17/22 09:08 Dose: 500 mg Docusate Sodium (Docusate Sodium 100 Mg Capsule) 100 mg PO BID [facility] Last Admin: 12/17/22 21:48 Dose: 100 mg Enoxaparin Sodium (Enoxaparin 100 Mg/Ml Syringe) 100 mg SQ BID [facility] Last Admin: 12/17/22 21:50 Dose: 100 mg Heparin Sodium (Porcine) (Heparin Flush 10 Units/Ml 5 Ml Syringe) 2 ml IV Q12 [facility] Last Admin: 12/17/22 21:49 Dose: Not Given Hydromorphone HCl (Hydromorphone 0.5 Mg/0.5 Ml Syringe) 0.5 - 1 mg IV Q1HP PRN; Protocol PRN Reason: Per Pain Protocol Last Admin: 12/17/22 13:56 Dose: 0.5 mg Potassium Chloride 40 meq/ (Dextrose) 520 mls @ 130 mls/hr IV UD PRN PRN Reason: Potassium < 3 Magnesium Sulfate (Magnesium Sulfate) 2 gm in 50 mls @ 50 mls/hr IV UD PRN PRN Reason: Magnesium </= 1.6 Dextrose/Lactated Ringer's (Dextrose 5%-Lactated Ringers) 1,000 mls @ 100 mls/hr IV .Q10H [facility] Last Admin: 12/18/22 03:43 Dose: 100 mls/hr CLINDAMYCIN IN 0.9 % SOD CHLOR (Clindamycin 900 Mg/50 Ml-Ns) 900 mg in 50 mls @ 100 mls/hr IV Q6H [facility] Last Infusion: 12/18/22 03:40 Dose: Infused Vancomycin HCl 1,000 mg/ (Sodium Chloride) 250 mls @ 250 mls/hr IV Q12H [facility] Last Infusion: 12/18/22 07:40 Dose: Infused Meropenem 1 gm/ Sodium (Chloride) 50 mls @ 100 mls/hr IV Q8H [facility]; Protocol Last Infusion: 12/18/22 06:22 Dose: Infused Magnesium Oxide (Magnesium Oxide 400 Mg Tablet) 200 mg PO QDAY [facility] Last Admin: 12/17/22 09:08 Dose: 200 mg Ondansetron HCl (Ondansetron 4 Mg/2 Ml Vial) 4 mg IV Q4HP PRN PRN Reason: Nausea And Vomiting Oxycodone HCl (Oxycodone Ir 5 Mg Tablet) 5 - 10 mg PO Q4-6HP PRN; Protocol PRN Reason: Per Pain Protocol Last Admin: 12/17/22 13:57 Dose: 10 mg Polyethylene Glycol (Polyethylene Glycol 3350 17 Gm Packet) 17 gm PO DAILYP PRN PRN Reason: Constipation Last Admin: 12/17/22 09:13 Dose: 17 gm Polyethylene Glycol (Polyethylene Glycol 3350 17 Gm Packet) 17 gm PO DAILY [facility] Last Admin: 12/17/22 09:22 Dose: Not Given Potassium Chloride (Potassium Chloride 20 Meq Tablet) 40 meq PO UD PRN PRN Reason: Potssium is 3-3.5 Potassium Chloride (Potassium Chloride 20 Meq Tablet) 40 meq PO UD PRN PRN Reason: Potassium < 3 Senna (Sennosides 1 Tablet) 2 tab PO DAILYP PRN PRN Reason: Constipation Simvastatin (Simvastatin 10 Mg Tablet) 10 mg PO HS [facility] Last Admin: 12/17/22 21:50 Dose: 10 mg Sodium Chloride (0.9 % Sodium Chloride 10 Ml Syringe) 10 ml IV Q8 [facility] Last Admin: 12/18/22 05:53 Dose: 10 ml Sodium Chloride (0.9 % Sodium Chloride 10 Ml Syringe) 10 ml IV Q12 [facility] Last Admin: 12/17/22 21:49 Dose: 10 ml Vancomycin HCl (Vancomycin Per Pharmacy) 1 order IV UD [facility]; Protocol Vitamin D (Vitamin D3 25 Mcg Tablet) 25 mcg PO QDAY [facility] Last Admin: 12/17/22 09:08 Dose: 25 mcg Zinc Sulfate (Zinc Sulfate 50 Mg Capsule) 50 mg PO QDAY [facility] Last Admin: 12/17/22 09:08 Dose: 50 mg A/P Narrative A/P Narrative: A: *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 Murry for wound mgmnt -IV antibiotics pending surgical cultures -Monitor vitals closely -prn QHS cpap -restarted home norvasc, restart home ARB if BP requires, hold HCTZ for now -cont statin -Bowel regimen -PT/OT -CM for placement needs -ppx: lovenox bid (warfarin held until further I&D r/o) Time Spent With Patient Time: Total time spent is greater than 50% in coordination of care (as documented) at patient's floor/unit and/or counseling patient: Subsequent: Total time with patient: 35 - 49 minutes QUALITY VTE Deep Vein Thrombosis/Pulmonary Embolism Present on Admission: No
[2022-12-18 08:27] LABS: Basophils # (Auto) 0.03 K/mcL (0.00-0.30); Basophils % (Auto) 0.6 % (0.0-2.0); Eosinophils # (Auto) 0.19 K/mcL (0.00-0.70); Hematocrit 38.1 % (40.1-51.0); Hemoglobin 12.5 g/dL (13.7-17.5); Lymphocytes # (Auto) 0.97 K/mcL (1.50-4.80); Lymphocytes % (Auto) 20.2 % (15.5-49.0); Mean Corpuscular HGB Conc 32.8 g/dL (31.0-36.0); Mean Platelet Volume 11.2 fL (8.8-12.5); Monocytes # (Auto) 0.66 K/mcL (0.10-0.90); Monocytes % (Auto) 13.8 % (1.0-12.0); Neutrophils % (Auto) 61.2 % (38.0-78.0); Platelet Count 152 K/mcL (140-440); RBC 4.14 M/mcL (4.63-6.08); Red Cell Distribution Width 13.7 % (11.5-14.5); WBC 4.8 K/mcL (4.5-11.0)
[2022-12-18 08:37] LABS: ALT/SGPT 38 U/L (<40); AST/SGOT 26 U/L (<40); Alkaline Phosphatase 55 U/L (39-117); Bilirubin,Direct 0.2 mg/dL (<0.3); Bilirubin,Total 0.8 mg/dL (0.1-1.0); Blood Urea Nitrogen 10 mg/dL (8-23); Calcium 8.5 mg/dL (8.6-10.4); Carbon Dioxide 23 mmol/L (22-30); Chloride 105 mmol/L (96-108); Glomerular Filtration Rate 87; Glucose 117 mg/dL (70-105); Lactate Dehydrogenase 189 U/L (135-225); Phosphorous 2.8 mg/dL (2.5-4.5); Triglycerides 135 mg/dL (<150); Uric Acid 6.2 mg/dL (2.5-8.0)
[2022-12-18] MEDS: ZINC SULFATE 50 MG CAPSULE PO SCH (08:48)
[2022-12-18] MEDS: CALCIUM W/VIT D3 500 MG TABLET PO SCH (08:48)
[2022-12-18] MEDS: MAGNESIUM OXIDE 400 MG TABLET PO SCH (08:48)
[2022-12-18] MEDS: amLODIPine 5 MG TABLET PO SCH ×2 (08:48→20:35)
[2022-12-18] MEDS: DOCUSATE SODIUM 100 MG CAPSULE PO SCH ×2 (08:48→20:36)
[2022-12-18] MEDS: VITAMIN D3 25 MCG TABLET PO SCH (08:48)
[2022-12-18] MEDS: ENOXAPARIN 100 MG/ML SYRINGE SQ SCH ×2 (08:49→20:36)
[2022-12-18] MEDS: POLYETHYLENE GLYCOL 3350 17 GM PACKET PO SCH ×4 (08:49→16:15)
--- NOTE | 2022-12-18 09:24 | Operative Note ---
DATE OF OPERATION: 12/16/2022 DATE OF PROCEDURE: 12/16/2022 PREOPERATIVE DIAGNOSIS: Perineal Nara's gangrene. POSTOPERATIVE DIAGNOSIS: Perineal Nara's gangrene. OPERATIVE PROCEDURE: Examination under anesthesia with incision and drainage and washout of perineal Nara's gangrene. SURGEON: Godwin Murry M.D. ANESTHESIA: General. POSITION: High lithotomy. INDICATIONS: The patient is a 77-year-old male who roughly 4-5 days ago, if not longer, began to develop an area of irritation at the base of the scrotum and perineal region. He was seen and placed on an oral antibiotic, but things seemed to just steadily worsened over the past 4-5 days to the point that he presented to the Emergency Room where he was seen and found to have an elevated white count. CT scan of the area was obtained, which confirmed findings consistent with Nara's gangrene and including evidence of gas in the soft tissues as well as the potential for drainable fluid collection in the area of the left medial gluteal fold and base of the scrotum. We were asked to see him in consultation, which we did at that time, and he was nontoxic, but on examination, he did have a very obviously tender and swollen area consistent with a soft tissue infection and the aforementioned CT findings. We discussed options and issues with he and his at length. I recommended relatively emergent surgery for examination under anesthesia as well as open debridement, washout and irrigation. Risks, benefits, potential complications, and alternative treatment options were all discussed at length. They gave full informed consent and wished to proceed. DESCRIPTION OF PROCEDURE: The patient was taken to the OR and placed under general anesthesia and intubated. He was positioned comfortably on the OR table by the entire OR team working together. He was then placed in the high lithotomy position and the perineum was then widely prepped and draped in a sterile fashion. We then began the area with examination of the perineal region and identified at the base of the left hemiscrotum an area of purulent drainage that extended into the soft tissues of the left medial area and space, and was then extensively irrigated out following incision and drainage of the area. We evacuated a large amount of purulent debris and took cultures and then unroofed the entire area, which was fairly extensive, and removed the overlying skin along the left inguinal groin crease and fold, to which this tract extended up. There was some involvement of the base of the scrotum, but no extensive involvement any further up than that. There did not seem to be any penile involvement either. Once we had adequately unroofed the entire area drained out all purulent material, we then debrided away any necrotic debris without difficulty, and as mentioned, cultures were sent. At this point, we irrigated the area out extensively. On examination, I felt there were no additional pockets or tracts and again all visible necrotic debris was removed. We then packed the entire area with Betadine-impregnated moistened gauze and then placed over dressings, along with this. At this point, the patient was awakened, extubated, and transferred to PACU in satisfactory condition. There were no apparent complications or issues. Sponge and instrument counts were correct. Findings are as discussed above. ESTIMATED BLOOD LOSS: Roughly 50 mL. DRAINS: None. FINDINGS: As discussed above. BW:[email or web address] Job ID: [id number] Doc ID: [id number] Godwin Murry M.D.
[2022-12-18] MEDS: ASCORBIC ACID 500 MG TABLET PO SCH ×2 (09:50→20:34)
[2022-12-18] MEDS: HYDROmorphone 0.5 MG/0.5 ML SYRINGE IV PRN ×4 (10:28→15:50)
[2022-12-18] MEDS ORDERED: LACTULOSE 20 GM/30 ML ORAL.SOL PO ONE (10:59)
--- NOTE | 2022-12-18 11:13 | Discharge Summary ---
Discharge Provider Provider IMPORTANT FOLLOW-UP INFORMATION FOR PCP: Patient information: Note initiated : 12/18/22 at 11:11 am Service Date, if different from initiated Date: [] Patient: Todd Garcia 77 y/o M admitted on 12/16/22 for Gangrene Perineum. Chief Complaint: [] Date of admission: 12/16/22 18:05 Primary care physician: Tariq Lopez DO Consults: 12/16/22 Consult to Physician [CONS] Stat Comment: Consulting Provider: Bigg Garcia Reason For Exam: Physician to Consult 12/16/22 12:00 Consult to Physician [CONS] Stat Comment: Consulting Provider: Godwin Murry Reason For Exam: Physician to Consult COURSE Hospital Course Hospital course: pt presents to ED with rectal/perineum pain and swelling and redness. He first went to see his carton wrapper on Saturday and was given an antibiotic, Possibly diagnosed with furuncle. But he has had increased swelling to been spreading of the redness and increased pain and presents back to the ED. He complains of chills but no fevers. Is painful to sit for long periods of time. He had some discharge as well. 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 Dr. Murry was contacted. Patient be taken to the OR for debridement today. Patient has history of DVT hypertension obesity. Hospitalist consulted for comanagement. Patient started on antibiotics and IV fluids in the ED. Patient does take warfarin for history of DVT and currently in the process of being reversed 12/17 Patient slept okay. Feels constipated. Some discomfort around the surgical site but pain relatively controlled. Patient had I&D of necrotic perineal tissue yesterday. We will start him on Lovenox twice daily instead of warfarin until further debridements ruled out. 12/18 Mediocre sleep which is normal for him. No overnight event or new complaints. No leukocytosis on follow-up labs. pt Developing lower extremity, will stop IV fluids. 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 Murry f/u -antibiotics Discharge diagnosis: Nara's gangrene Secondary discharge diagnosis: History of DVT hypertension hyperlipidemia obesity obstructive sleep apnea constipation Time Spent with Patient Time attestation: Total time spent providing and/or coordinating discharge services: Time spent: Greater than 30 minutes EXAM Constitutional Vitals: Temp Pulse Resp BP Pulse Ox O2 Del Method O2 Flow Rate 99 F 77 18 139/78 95 Nasal Cannula 1 12/18/22 08:00 12/18/22 08:00 12/18/22 08:00 12/18/22 08:00 12/18/22 08:00 12/18/22 08:00 12/18/22 08:00 Discharge Data Data Completed and Pending Labs on day of discharge: Labs from last 24 hours 12/18/22 12/18/22 12/18/22 05:32 05:32 05:32 WBC 4.8 RBC 4.14 L Hgb 12.5 L Hct 38.1 L MCV 92.0 MCH 30.2 MCHC 32.8 RDW 13.7 Plt Count 152 MPV 11.2 Immature Gran % (Auto) 0.2 Neut % (Auto) 61.2 Lymph % (Auto) 20.2 [place] % (Auto) 13.8 H Eos % (Auto) 4.0 Baso % (Auto) 0.6 Lymph # (Auto) 0.97 L [place] # (Auto) 0.66 Eos # (Auto) 0.19 Baso # (Auto) 0.03 Immature Gran # 0.01 Absolute Neutrophils 2.94 PT INR Sodium 138 Potassium 4.1 Chloride 105 Carbon Dioxide 23 Anion Gap 10.0 BUN 10 Creatinine 0.8 GFR Calculation 87 Glucose 117 H Uric Acid 6.2 Calcium 8.5 L Phosphorus 2.8 Magnesium 2.0 Total Bilirubin 0.8 Direct Bilirubin 0.2 GGT 32 AST 26 ALT 38 Alkaline Phosphatase 55 Lactate Dehydrogenase 189 Total Protein 6.0 Albumin 3.0 L Globulin 3.0 Albumin/Globulin Ratio 1.0 Triglycerides 135 Vancomycin Trough 9.1 12/18/22 05:32 WBC RBC Hgb Hct MCV MCH MCHC RDW Plt Count MPV Immature Gran % (Auto) Neut % (Auto) Lymph % (Auto) [place] % (Auto) Eos % (Auto) Baso % (Auto) Lymph # (Auto) [place] # (Auto) Eos # (Auto) Baso # (Auto) Immature Gran # Absolute Neutrophils PT 15.1 H INR 1.1 Sodium Potassium Chloride Carbon Dioxide Anion Gap BUN Creatinine GFR Calculation Glucose Uric Acid Calcium Phosphorus Magnesium Total Bilirubin Direct Bilirubin GGT AST ALT Alkaline Phosphatase Lactate Dehydrogenase Total Protein Albumin Globulin Albumin/Globulin Ratio Triglycerides Vancomycin Trough Preliminary micro results at discharge 12/16/22 17:45 Anaerobic Culture - Preliminary Perineal Gram Stain - Preliminary Wound Culture - Preliminary 12/16/22 12:37 Blood Culture - Preliminary Blood 12/16/22 12:15 Blood Culture - Preliminary Blood Discharge Plan Patient/Caregiver Discharge Instructions Activity: increase activity as tolerated Diet: Regular Diet Prescriptions: Continued losartan 100 mg tablet 100 mg PO QDAY Qty: 90 3RF pravastatin 20 mg tablet 20 mg PO QDAY Qty: 90 3RF warfarin 5 mg tablet 10 mg PO QDAY Qty: 180 3RF Protocol: Dose Management Protocol Text: Patient Instructed to take: warfarin 5 mg (2 Tabs) on RODRIGUEZ, MO, , WE, TH, FR, SA amlodipine 5 mg tablet 5 mg PO BID Qty: 180 3RF hydrochlorothiazide 25 mg tablet 25 mg PO QAM Qty: 90 3RF Follow Up Plan Follow up with: Tariq Lopez DO [Primary Care Provider] - Godwin Murry MD [Physician] - Patient Disposition: Home, Self-Care QUALITY VTE Deep Vein Thrombosis/Pulmonary Embolism Present on Admission: No
--- NOTE | 2022-12-18 12:17 | General Surgery Progress Note ---
SUBJECTIVE Subjective Patient information: Note initiated : 12/18/22 at 12:13 pm Service Date, if different from initiated Date: [] Patient: Todd Garcia 77 y/o M admitted on 12/16/22 for Gangrene Perineum. Chief Complaint: [] Seen today in conjunction with his wound care and VAC placement Constitutional Vitals: Vital Signs Temp Pulse Resp BP Pulse Ox O2 Del Method O2 Flow Rate 99 F 77 18 139/78 95 Nasal Cannula 1 12/18/22 08:00 12/18/22 08:00 12/18/22 08:00 12/18/22 08:00 12/18/22 08:00 12/18/22 08:00 12/18/22 08:00 Period Temp Pulse Resp BP Sys/Stinson Pulse Ox O2 Del Method O2 Flow Rate Last 24 Hr 98.0 F-99.1 F 71-80 18-18 107-139/61-78 93-95 Nasal Cannula- Nasal Cannula 1-1 Intake and Output 12/18/22 12/18/22 12/18/22 03:59 11:59 19:59 Intake Total 1950 1432 Output Total 2225 750 Balance -275 682 Weight 273 lb 1.6 oz Intake & Output: Intake & Output 12/18/22 12/18/22 12/18/22 03:59 11:59 19:59 Intake Total 1950 1432 Output Total 2225 750 Balance -275 682 Weight 273 lb 1.6 oz Intake: IV 1150 732 Dextrose 5%-Lactated Ringers 1, 1000 382 000 ml @ 100 mls/hr IV .Q10H [facility] Rx#:[id number] Merrem 1 gm In Sodium Chloride 50 50 0.9% 50 ml @ 100 mls/hr IV Q8H [facility] Rx#:[id number] Vancomycin 1,000 mg In Sodium 250 Chloride 0.9% 250 ml @ 250 mls/ hr IV Q12H [facility] Rx#:[id number] Oral 800 700 Output: Urine Catheter Amount 2225 750 Other: Urine Appearance Clear Clear Uretheral (Shirley) Clear Clear Urine Color Yellow Yellow Uretheral (Shirley) Yellow Yellow Urine Odor Normal Normal Exam: looks well, non toxic, NAD Additional comments: the perineal wound is examined closely and looks very clean without odor, drainage or necrosis. Some surrounding induration remains but appears to be significantly improved A/P Assessment and plan (1) Nara's gangrene: Assessment and plan: Nara's Gangrene post I&D VAC placement today Continue IV ABs for now Status: Acute Time Spent With Patient Time: Total time spent is greater than 50% in coordination of care (as documented) at patient's floor/unit and/or counseling patient:
[2022-12-18] MEDS: IPRATROPIUM/ALBUTEROL 3 ML AMPUL.NEB NEB PRN ×2 (16:45→20:50)
[2022-12-18] MEDS: SIMVASTATIN 10 MG TABLET PO SCH (20:34)
[2022-12-19] MEDS: CLINDAMYCIN IN 0.9 % SOD CHLOR 900 MG/50 ML BAG IV SCH ×2 (02:10→07:38)
[2022-12-19] MEDS: 0.9 % SODIUM CHLORIDE 10 ML SYRINGE IV SCH ×5 (05:30→22:38)
[2022-12-19] MEDS: MEROPENEM 1 GM in 0.9 % SODIUM CHLORIDE 50 ML IV SCH ×3 (05:33→22:06)
[2022-12-19] MEDS: VANCOMYCIN 1,000 MG in 0.9 % SODIUM CHLORIDE 250 ML IV SCH (06:08)
[2022-12-19 06:25] LABS: INR 1.1 (0.9-1.1); Prothrombin Time 14.9 sec (11.9-14.5)
--- NOTE | 2022-12-19 08:16 | Internal Med Progress Note ---
SUBJECTIVE Subjective Patient information: Note initiated : 12/19/22 at 8:14 am Service Date, if different from initiated Date: [] Patient: Todd Garcia 77 y/o M admitted on 12/16/22 for Gangrene Perineum. Chief Complaint: [] Interval history: Chief Complaint: [] cc:: CC: pt presents to ED with rectal/perineum pain and swelling and redness. He first went to see his cadd technician on Saturday and was given an antibiotic, Possibly diagnosed with furuncle. But he has had increased swelling to been spreading of the redness and increased pain and presents back to the ED. He complains of chills but no fevers. Is painful to sit for long periods of time. He had some discharge as well. 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 Dr. Murry was contacted. Patient be taken to the OR for debridement today. Patient has history of DVT hypertension obesity. Hospitalist consulted for comanagement. Patient started on antibiotics and IV fluids in the ED. Patient does take warfarin for history of DVT and currently in the process of being reversed 12/17 Patient slept okay. Feels constipated. Some discomfort around the surgical site but pain relatively controlled. Patient had I&D of necrotic perineal tissue yesterday. We will start him on Lovenox twice daily instead of warfarin until further debridements ruled out. 12/18 Mediocre sleep which is normal for him. No overnight event or new complaints. No leukocytosis on follow-up labs. pt Developing lower extremity, will stop IV fluids. 12/19 Patient feels congested this morning. Patient also is up on fluid balance. We will give IV Lasix x1. And does have some edema in the legs mild. Otherwise no new complaints. Patient seems to be feeling relatively well otherwise. Pending further surgeon recommendations Review of Systems: Pertinent positives as above. Denies headache/fever/nausea/vomiting/chest or abdominal pain/cough/dyspnea/diarrhea. PHYSICAL EXAM General: Alert, Awake, No acute Distress, obese Eyes/N/T: EOMI, no scleral icterus, Head/Neck: neck supple, full ROM, CV: RRR, No murmurs, Pulm: rhonchi/rales mild b/l, no wheezing, no respiratory distress Abd: soft, nontender, +BS x4 Ext: no clubbing/cyanosis, 1+ b/l LE edema, nontender Neuro: Alert, no focal deficits, moves all extremities, , sensations intact b/l upper/lower Psychiatric: Skin: warm/dry, normal color Constitutional Vitals: Vital Signs Temp Pulse Resp BP Pulse Ox O2 Del Method O2 Flow Rate 99.6 F H 70 14 111/62 91 Nasal Cannula 1 12/19/22 07:05 12/19/22 07:05 12/19/22 07:05 12/19/22 07:05 12/19/22 07:05 12/19/22 07:05 12/19/22 07:05 Period Temp Pulse Resp BP Sys/Stinson Pulse Ox O2 Del Method O2 Flow Rate Last 24 Hr 98.5 F-99.6 F 68-97 14-21 109-125/60-71 87-93 Nasal Cannula- Nasal Cannula 1-2 Intake and Output 12/18/22 12/19/22 12/19/22 19:59 03:59 11:59 Intake Total 1010 700 300 Output Total 1350 1050 1100 Balance -340 -350 -800 Weight 124.454 kg Intake & Output: Intake & Output 12/18/22 12/19/22 12/19/22 19:59 03:59 11:59 Intake Total 1010 700 300 Output Total 1350 1050 1100 Balance -340 -350 -800 Weight 124.454 kg Intake: IV 350 150 300 Merrem 1 gm In Sodium Chloride 50 50 50 0.9% 50 ml @ 100 mls/hr IV Q8H [facility] Rx#:[id number] Vancomycin 1,000 mg In Sodium 250 250 Chloride 0.9% 250 ml @ 250 mls/ hr IV Q12H [facility] Rx#:[id number] Oral 660 550 Output: Urine Catheter Amount 1350 Void Amount 1050 1100 Other: Urine Appearance Clear Clear Clear Urine Color Yellow Yellow Yellow Urine Odor Normal Stool Size Moderate Stool Color Brown Stool Consistency Formed # Voids 1 # Bowel Movements 1 OBJ DATA Labs 12/18/22 05:32 12/18/22 05:32 Labs: Abnormal Lab Results 12/19/22 12/18/22 12/18/22 05:15 05:32 05:32 RBC 4.14 L Hgb 12.5 L Hct 38.1 L Neut % (Auto) Lymph % (Auto) [place] % (Auto) 13.8 H Lymph # (Auto) 0.97 L ESR POC PT PT 14.9 H POC INR INR POC VBG pCO2 at Temp POC VBG pO2 POC VBG HCO3 POC VBG Total CO2 POC Venous O2 Sat POC VBG Base Excess Carbon Dioxide POC BUN Glucose 117 H POC Glucose Calcium 8.5 L POC WB Ioniz Calcium Total Bilirubin Direct Bilirubin ALT Lactate Dehydrogenase C-Reactive Protein Albumin 3.0 L Procalcitonin Urine Protein Urine Urobilinogen Urine Mucus 12/18/22 12/17/22 12/17/22 05:32 05:17 05:17 RBC 4.28 L Hgb 13.2 L Hct 39.7 L Neut % (Auto) 78.7 H Lymph % (Auto) 8.4 L [place] % (Auto) Lymph # (Auto) 0.53 L ESR POC PT PT 15.1 H POC INR INR POC VBG pCO2 at Temp POC VBG pO2 POC VBG HCO3 POC VBG Total CO2 POC Venous O2 Sat POC VBG Base Excess Carbon Dioxide 21 L POC BUN Glucose 121 H POC Glucose Calcium 8.2 L POC WB Ioniz Calcium Total Bilirubin 1.2 H Direct Bilirubin 0.3 H ALT 42 H Lactate Dehydrogenase 258 H C-Reactive Protein Albumin Procalcitonin Urine Protein Urine Urobilinogen Urine Mucus 12/17/22 12/16/22 12/16/22 05:16 15:57 13:38 RBC Hgb Hct Neut % (Auto) Lymph % (Auto) [place] % (Auto) Lymph # (Auto) ESR POC PT 17.3 H 32.8 H PT 15.4 H POC INR 1.5 H 2.9 H INR 1.2 H POC VBG pCO2 at Temp POC VBG pO2 POC VBG HCO3 POC VBG Total CO2 POC Venous O2 Sat POC VBG Base Excess Carbon Dioxide POC BUN Glucose POC Glucose Calcium POC WB Ioniz Calcium Total Bilirubin Direct Bilirubin ALT Lactate Dehydrogenase C-Reactive Protein Albumin Procalcitonin Urine Protein Urine Urobilinogen Urine Mucus 12/16/22 12/16/22 12/16/22 13:30 12:32 11:14 RBC Hgb Hct Neut % (Auto) Lymph % (Auto) [place] % (Auto) Lymph # (Auto) ESR POC PT PT 25.2 H POC INR INR 2.2 H POC VBG pCO2 at Temp 32.7 L POC VBG pO2 47 H POC VBG HCO3 21.1 L POC VBG Total CO2 22.0 L POC Venous O2 Sat 84.0 H POC VBG Base Excess -3.0 L Carbon Dioxide POC BUN Glucose POC Glucose Calcium POC WB Ioniz Calcium Total Bilirubin Direct Bilirubin ALT Lactate Dehydrogenase C-Reactive Protein Albumin Procalcitonin Urine Protein 30 A Urine Urobilinogen 2.0 A Urine Mucus Few A 12/16/22 12/16/22 12/16/22 11:14 11:14 11:14 RBC Hgb Hct Neut % (Auto) Lymph % (Auto) 13.8 L [place] % (Auto) Lymph # (Auto) 1.05 L ESR 34 H POC PT PT POC INR INR POC VBG pCO2 at Temp POC VBG pO2 POC VBG HCO3 POC VBG Total CO2 POC Venous O2 Sat POC VBG Base Excess Carbon Dioxide POC BUN Glucose POC Glucose Calcium POC WB Ioniz Calcium Total Bilirubin Direct Bilirubin 0.3 H ALT 44 H Lactate Dehydrogenase C-Reactive Protein 13.10 H Albumin Procalcitonin 0.20 H Urine Protein Urine Urobilinogen Urine Mucus 12/16/22 11:09 RBC Hgb Hct Neut % (Auto) Lymph % (Auto) [place] % (Auto) Lymph # (Auto) ESR POC PT PT POC INR INR POC VBG pCO2 at Temp POC VBG pO2 POC VBG HCO3 POC VBG Total CO2 POC Venous O2 Sat POC VBG Base Excess Carbon Dioxide POC BUN 25 H Glucose POC Glucose 110 H Calcium POC WB Ioniz Calcium 1.12 L Total Bilirubin Direct Bilirubin ALT Lactate Dehydrogenase C-Reactive Protein Albumin Procalcitonin Urine Protein Urine Urobilinogen Urine Mucus Meds: Medications Albuterol Sulfate (Albuterol Sulfate 60 Puff Inhaler) 2 puff INH Q6HP PRN PRN Reason: shortness of breath or wheezing Albuterol/Ipratropium (Ipratropium/Albuterol 3 Ml Ampul.Neb) 3 ml NEB Q4HP PRN PRN Reason: Shortness Of Breath Last Admin: 12/18/22 20:50 Dose: 3 ml Amlodipine Besylate (Amlodipine 5 Mg Tablet) 5 mg PO BID [facility] Last Admin: 12/18/22 20:35 Dose: 5 mg Ascorbic Acid (Ascorbic Acid 500 Mg Tablet) 1,000 mg PO Q12H [facility] Last Admin: 12/18/22 20:34 Dose: 1,000 mg Calcium/Vitamin D (Calcium W/Vit D3 500 Mg Tablet) 500 mg PO QDAY [facility] Last Admin: 12/18/22 08:48 Dose: 500 mg Docusate Sodium (Docusate Sodium 100 Mg Capsule) 100 mg PO BID [facility] Last Admin: 12/18/22 20:36 Dose: 100 mg Enoxaparin Sodium (Enoxaparin 100 Mg/Ml Syringe) 100 mg SQ BID [facility] Last Admin: 12/18/22 20:36 Dose: 100 mg Heparin Sodium (Porcine) (Heparin Flush 10 Units/Ml 5 Ml Syringe) 2 ml IV Q12 [facility] Last Admin: 12/18/22 20:35 Dose: 2 ml Hydromorphone HCl (Hydromorphone 0.5 Mg/0.5 Ml Syringe) 0.5 - 1 mg IV Q1HP PRN; Protocol PRN Reason: Per Pain Protocol Last Admin: 12/18/22 15:50 Dose: 0.5 mg Potassium Chloride 40 meq/ (Dextrose) 520 mls @ 130 mls/hr IV UD PRN PRN Reason: Potassium < 3 Magnesium Sulfate (Magnesium Sulfate) 2 gm in 50 mls @ 50 mls/hr IV UD PRN PRN Reason: Magnesium </= 1.6 CLINDAMYCIN IN 0.9 % SOD CHLOR (Clindamycin 900 Mg/50 Ml-Ns) 900 mg in 50 mls @ 100 mls/hr IV Q6H [facility] Last Admin: 12/19/22 07:38 Dose: 100 mls/hr Meropenem 1 gm/ Sodium (Chloride) 50 mls @ 100 mls/hr IV Q8H [facility]; Protocol Last Infusion: 12/19/22 06:07 Dose: Infused Vancomycin HCl 1,000 mg/ (Sodium Chloride) 250 mls @ 250 mls/hr IV Q8H [facility] Magnesium Oxide (Magnesium Oxide 400 Mg Tablet) 200 mg PO QDAY [facility] Last Admin: 12/18/22 08:48 Dose: 200 mg Ondansetron HCl (Ondansetron 4 Mg/2 Ml Vial) 4 mg IV Q4HP PRN PRN Reason: Nausea And Vomiting Oxycodone HCl (Oxycodone Ir 5 Mg Tablet) 5 - 10 mg PO Q4-6HP PRN; Protocol PRN Reason: Per Pain Protocol Last Admin: 12/17/22 13:57 Dose: 10 mg Polyethylene Glycol (Polyethylene Glycol 3350 17 Gm Packet) 17 gm PO DAILYP PRN PRN Reason: Constipation Last Admin: 12/17/22 09:13 Dose: 17 gm Polyethylene Glycol (Polyethylene Glycol 3350 17 Gm Packet) 17 gm PO DAILY [facility] Last Admin: 12/18/22 08:49 Dose: 17 gm Potassium Chloride (Potassium Chloride 20 Meq Tablet) 40 meq PO UD PRN PRN Reason: Potssium is 3-3.5 Potassium Chloride (Potassium Chloride 20 Meq Tablet) 40 meq PO UD PRN PRN Reason: Potassium < 3 Senna (Sennosides 1 Tablet) 2 tab PO DAILYP PRN PRN Reason: Constipation Last Admin: 12/18/22 11:27 Dose: 2 tab Simvastatin (Simvastatin 10 Mg Tablet) 10 mg PO HS [facility] Last Admin: 12/18/22 20:34 Dose: 10 mg Sodium Chloride (0.9 % Sodium Chloride 10 Ml Syringe) 10 ml IV Q8 [facility] Last Admin: 12/19/22 05:30 Dose: 10 ml Sodium Chloride (0.9 % Sodium Chloride 10 Ml Syringe) 10 ml IV Q12 [facility] Last Admin: 12/18/22 20:36 Dose: 10 ml Vancomycin HCl (Vancomycin Per Pharmacy) 1 order IV UD [facility]; Protocol Vitamin D (Vitamin D3 25 Mcg Tablet) 25 mcg PO QDAY [facility] Last Admin: 12/18/22 08:48 Dose: 25 mcg Zinc Sulfate (Zinc Sulfate 50 Mg Capsule) 50 mg PO QDAY [facility] Last Admin: 12/18/22 08:48 Dose: 50 mg A/P Narrative A/P Narrative: A: *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 Murry for wound mgmnt -IV antibiotics pending surgical cultures -Monitor vitals closely -prn QHS cpap -restarted home norvasc, restart home ARB if BP requires, hold HCTZ for now -cont statin -Bowel regimen -PT/OT -CM for placement needs -ppx: lovenox bid (warfarin held until further I&D r/o) Time Spent With Patient Time: Total time spent is greater than 50% in coordination of care (as documented) at patient's floor/unit and/or counseling patient: Subsequent: Total time with patient: 35 - 49 minutes QUALITY VTE Deep Vein Thrombosis/Pulmonary Embolism Present on Admission: No
[2022-12-19] MEDS: VITAMIN D3 25 MCG TABLET PO SCH (08:17)
[2022-12-19] MEDS: DOCUSATE SODIUM 100 MG CAPSULE PO SCH ×2 (08:17→20:44)
[2022-12-19] MEDS: CALCIUM W/VIT D3 500 MG TABLET PO SCH (08:17)
[2022-12-19] MEDS: MAGNESIUM OXIDE 400 MG TABLET PO SCH (08:18)
[2022-12-19] MEDS: POLYETHYLENE GLYCOL 3350 17 GM PACKET PO SCH (08:18)
[2022-12-19] MEDS: ZINC SULFATE 50 MG CAPSULE PO SCH (08:19)
[2022-12-19] MEDS: amLODIPine 5 MG TABLET PO SCH (08:21)
[2022-12-19] MEDS: ENOXAPARIN 100 MG/ML SYRINGE SQ SCH ×2 (08:21→20:44)
[2022-12-19] MEDS: IPRATROPIUM/ALBUTEROL 3 ML AMPUL.NEB NEB PRN ×2 (08:37→18:34)
[2022-12-19] MEDS ORDERED: VANCOMYCIN 500 MG in 0.9 % SODIUM CHLORIDE 100 ML IV ONE (09:00)
[2022-12-19] MEDS ORDERED: FUROSEMIDE 40 MG/4 ML VIAL IV ONE (09:05)
[2022-12-19] MEDS ORDERED: guaiFENesin 600 MG TAB.SR.12H PO ONE (09:06)
[2022-12-19] MEDS: ASCORBIC ACID 500 MG TABLET PO SCH ×2 (09:17→22:09)
--- NOTE | 2022-12-19 11:37 | General Surgery Progress Note ---
SUBJECTIVE Subjective Patient information: Note initiated : 12/19/22 at 11:34 am Service Date, if different from initiated Date: [] Patient: Todd Garcia 77 y/o M admitted on 12/16/22 for Gangrene Perineum. Chief Complaint: [] looks well, feels good, less pain, VAC in place Constitutional Vitals: Vital Signs Temp Pulse Resp BP Pulse Ox O2 Del Method O2 Flow Rate 98.8 F 90 14 95/52 92 Nasal Cannula 1 12/19/22 11:15 12/19/22 11:15 12/19/22 11:15 12/19/22 11:15 12/19/22 11:15 12/19/22 11:15 12/19/22 11:15 Period Temp Pulse Resp BP Sys/Stinson Pulse Ox O2 Del Method O2 Flow Rate Last 24 Hr 98.5 F-99.6 F 68-97 14-21 95-125/52-71 87-93 Nasal Cannula- Room Air 1-2 Intake and Output 12/18/22 12/19/22 12/19/22 19:59 03:59 11:59 Intake Total 1010 700 450 Output Total 1350 1050 1100 Balance -340 -350 -650 Weight 274 lb 6 oz Intake & Output: Intake & Output 12/18/22 12/19/22 12/19/22 19:59 03:59 11:59 Intake Total 1010 700 450 Output Total 1350 1050 1100 Balance -340 -350 -650 Weight 274 lb 6 oz Intake: IV 350 150 450 Merrem 1 gm In Sodium Chloride 50 50 50 0.9% 50 ml @ 100 mls/hr IV Q8H [facility] Rx#:[id number] Vancomycin 500 mg In Sodium 100 Chloride 0.9% 100 ml @ 100 mls/ hr IV ONCE ONE Rx#:[id number] Vancomycin 1,000 mg In Sodium 250 250 Chloride 0.9% 250 ml @ 250 mls/ hr IV Q12H [facility] Rx#:[id number] Oral 660 550 Output: Urine Catheter Amount 1350 Void Amount 1050 1100 Other: Urine Appearance Clear Clear Clear Urine Color Yellow Yellow Yellow Urine Odor Normal Stool Size Moderate Stool Color Brown Stool Consistency Formed # Voids 1 # Bowel Movements 1 Exam: looks well, non toxic, no acute distress or other issue Respiratory Respiratory exam: Present normal respiratory exam Cardiovascular Cardiovascular exam: Present RRR GI/Abdominal Additional comments: soft and obese, non tender Additional comments: VAC in place Extremities Exam Additional comments: well perfused A/P Assessment and plan (1) Nara's gangrene: Assessment and plan: Nara's Gangrene Doing Well Check pending culture results Await home VAC approval Status: Acute Time Spent With Patient Time: Total time spent is greater than 50% in coordination of care (as documented) at patient's floor/unit and/or counseling patient:
[2022-12-19 11:38] LABS: Hematocrit 39.7 % (40.1-51.0); Mean Cell Volume 93.9 fL (80.0-100.0); Mean Corpuscular HGB Conc 32.7 g/dL (31.0-36.0); Mean Platelet Volume 11.5 fL (8.8-12.5); Platelet Count 162 K/mcL (140-440); RBC 4.23 M/mcL (4.63-6.08); Red Cell Distribution Width 13.9 % (11.5-14.5); WBC 6.5 K/mcL (4.5-11.0)
[2022-12-19] MEDS: CLINDAMYCIN 900 MG in DEXTROSE 5% IN WATER 50 ML IV SCH ×2 (11:43→17:46)
[2022-12-19] MEDS ORDERED: CLINDAMYCIN 900 MG in DEXTROSE 5% IN WATER 50 ML IV SCH (12:00)
[2022-12-19 12:40] LABS: Blood Urea Nitrogen 8 mg/dL (8-23); Calcium 8.9 mg/dL (8.6-10.4); Carbon Dioxide 23 mmol/L (22-30); Chloride 104 mmol/L (96-108); Glomerular Filtration Rate 83; Glucose 107 mg/dL (70-105)
[2022-12-19] MEDS ORDERED: VANCOMYCIN 1,000 MG in 0.9 % SODIUM CHLORIDE 250 ML IV SCH (14:00)
[2022-12-19] MEDS: SIMVASTATIN 10 MG TABLET PO SCH (20:44)
[2022-12-19] MEDS: VANCOMYCIN 1,500 MG in 0.9 % SODIUM CHLORIDE 500 ML IV SCH (20:44)
[2022-12-19] MEDS ORDERED: guaiFENesin 600 MG TAB.SR.12H PO PRN (21:00)
[2022-12-20] MEDS: CLINDAMYCIN 900 MG in DEXTROSE 5% IN WATER 50 ML IV SCH ×5 (00:03→23:49)
[2022-12-20] MEDS: MEROPENEM 1 GM in 0.9 % SODIUM CHLORIDE 50 ML IV SCH ×3 (05:47→21:51)
[2022-12-20] MEDS: 0.9 % SODIUM CHLORIDE 10 ML SYRINGE IV SCH ×5 (05:50→21:52)
--- NOTE | 2022-12-20 07:50 | Internal Med Progress Note ---
SUBJECTIVE Subjective Patient information: Note initiated : 12/20/22 at 7:49 am Service Date, if different from initiated Date: [] Patient: Todd Garcia 77 y/o M admitted on 12/16/22 for Gangrene Perineum. Chief Complaint: [] Interval history: Chief Complaint: [] cc:: CC: pt presents to ED with rectal/perineum pain and swelling and redness. He first went to see his automatic spinning lathe setter on Saturday and was given an antibiotic, Possibly diagnosed with furuncle. But he has had increased swelling to been spreading of the redness and increased pain and presents back to the ED. He complains of chills but no fevers. Is painful to sit for long periods of time. He had some discharge as well. 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 Dr. Murry was contacted. Patient be taken to the OR for debridement today. Patient has history of DVT hypertension obesity. Hospitalist consulted for comanagement. Patient started on antibiotics and IV fluids in the ED. Patient does take warfarin for history of DVT and currently in the process of being reversed 12/17 Patient slept okay. Feels constipated. Some discomfort around the surgical site but pain relatively controlled. Patient had I&D of necrotic perineal tissue yesterday. We will start him on Lovenox twice daily instead of warfarin until further debridements ruled out. 12/18 Mediocre sleep which is normal for him. No overnight event or new complaints. No leukocytosis on follow-up labs. pt Developing lower extremity, will stop IV fluids. 12/19 Patient feels congested this morning. Patient also is up on fluid balance. We will give IV Lasix x1. And does have some edema in the legs mild. Otherwise no new complaints. Patient seems to be feeling relatively well otherwise. Pending further surgeon recommendations 12/20 Patient feeling pretty good other than developing diarrhea. Wanting to increase his diet. Wound VAC being set up. White blood cell count remains normal and no fevers. Review of Systems: Pertinent positives as above. Denies headache/fever/nausea/vomiting/chest or abdominal pain/cough/dyspnea/diarrhea. PHYSICAL EXAM General: Alert, Awake, No acute Distress, obese Eyes/N/T: EOMI, no scleral icterus, Head/Neck: neck supple, full ROM, CV: RRR, No murmurs, Pulm: rhonchi/rales mild b/l, no wheezing, no respiratory distress Abd: soft, nontender, +BS x4 Ext: no clubbing/cyanosis, 1+ b/l LE edema, nontender Neuro: Alert, no focal deficits, moves all extremities, , sensations intact b/l upper/lower Psychiatric: Skin: warm/dry, normal color Constitutional Vitals: Vital Signs Temp Pulse Resp BP Pulse Ox O2 Del Method O2 Flow Rate 99.1 F H 73 20 122/70 96 Nasal Cannula 1.5 12/20/22 03:45 12/20/22 03:45 12/20/22 03:45 12/20/22 03:45 12/20/22 05:50 12/20/22 05:50 12/20/22 05:50 Period Temp Pulse Resp BP Sys/Stinson Pulse Ox O2 Del Method O2 Flow Rate Last 24 Hr 98.1 F-99.1 F 73-90 14-34 95-139/52-74 90-96 Nasal Cannula- Room Air 1-2 Intake and Output 12/19/22 12/20/22 12/20/22 19:59 03:59 11:59 Intake Total 2952 906 106 Output Total 1150 1625 400 Balance 1802 719 -294 Weight 118.841 kg Intake & Output: Intake & Output 12/19/22 12/20/22 12/20/22 19:59 03:59 11:59 Intake Total 2952 906 106 Output Total 1150 1625 400 Balance 1802 719 -294 Weight 118.841 kg Intake: IV 162 606 106 Cleocin 900 mg In Dextrose 5% 112 56 56 in Water 50 ml @ 100 mls/hr IV Q6H [facility] Rx#:[id number] Merrem 1 gm In Sodium Chloride 50 50 50 0.9% 50 ml @ 100 mls/hr IV Q8H [facility] Rx#:[id number] Vancomycin 1,500 mg In Sodium 500 Chloride 0.9% 500 ml @ 333.3 mls/hr IV Q12H [facility] Rx#: [id number] Oral 2790 300 Output: Void Amount 1150 1625 400 Other: Meal Dinner Percent of Meal Consumed 100% Feeding Ability Independent Urine Appearance Clear Clear Clear Urine Color Yellow Yellow Yellow Stool Size Moderate Stool Consistency Loose # Voids 1 # Bowel Movements 1 OBJ DATA Labs 12/19/22 05:30 12/19/22 10:57 Labs: Abnormal Lab Results 12/19/22 12/19/22 12/19/22 10:57 05:30 05:15 RBC 4.23 L Hgb 13.0 L Hct 39.7 L [place] % (Auto) Lymph # (Auto) PT 14.9 H Glucose 107 H Calcium Albumin 12/18/22 12/18/22 12/18/22 05:32 05:32 05:32 RBC 4.14 L Hgb 12.5 L Hct 38.1 L [place] % (Auto) 13.8 H Lymph # (Auto) 0.97 L PT 15.1 H Glucose 117 H Calcium 8.5 L Albumin 3.0 L Meds: Medications Albuterol Sulfate (Albuterol Sulfate 60 Puff Inhaler) 2 puff INH Q6HP PRN PRN Reason: shortness of breath or wheezing Albuterol/Ipratropium (Ipratropium/Albuterol 3 Ml Ampul.Neb) 3 ml NEB Q4HP PRN PRN Reason: Shortness Of Breath Last Admin: 12/19/22 18:34 Dose: 3 ml Amlodipine Besylate (Amlodipine 5 Mg Tablet) 5 mg PO DAILY [facility] Last Admin: 12/19/22 08:21 Dose: 5 mg Ascorbic Acid (Ascorbic Acid 500 Mg Tablet) 1,000 mg PO Q12H [facility] Last Admin: 12/19/22 22:09 Dose: 1,000 mg Calcium/Vitamin D (Calcium W/Vit D3 500 Mg Tablet) 500 mg PO QDAY [facility] Last Admin: 12/19/22 08:17 Dose: 500 mg Docusate Sodium (Docusate Sodium 100 Mg Capsule) 100 mg PO BID [facility] Last Admin: 12/19/22 20:44 Dose: Not Given Enoxaparin Sodium (Enoxaparin 100 Mg/Ml Syringe) 100 mg SQ BID [facility] Last Admin: 12/19/22 20:44 Dose: 100 mg Guaifenesin (Guaifenesin 600 Mg Tab.Sr.12h) 600 mg PO BIDP PRN PRN Reason: Congestion Heparin Sodium (Porcine) (Heparin Flush 10 Units/Ml 5 Ml Syringe) 2 ml IV Q12 [facility] Last Admin: 12/19/22 20:44 Dose: 2 ml Hydromorphone HCl (Hydromorphone 0.5 Mg/0.5 Ml Syringe) 0.5 - 1 mg IV Q1HP PRN; Protocol PRN Reason: Per Pain Protocol Last Admin: 12/18/22 15:50 Dose: 0.5 mg Potassium Chloride 40 meq/ (Dextrose) 520 mls @ 130 mls/hr IV UD PRN PRN Reason: Potassium < 3 Magnesium Sulfate (Magnesium Sulfate) 2 gm in 50 mls @ 50 mls/hr IV UD PRN PRN Reason: Magnesium </= 1.6 Meropenem 1 gm/ Sodium (Chloride) 50 mls @ 100 mls/hr IV Q8H [facility]; Protocol Last Infusion: 12/20/22 06:35 Dose: Infused Vancomycin HCl 1,500 mg/ (Sodium Chloride) 500 mls @ 333.3 mls/hr IV Q12H [facility] Last Infusion: 12/19/22 22:40 Dose: Infused Clindamycin Phosphate 900 mg/ (Dextrose) 56 mls @ 100 mls/hr IV Q6H [facility] Last Infusion: 12/20/22 06:35 Dose: Infused Magnesium Oxide (Magnesium Oxide 400 Mg Tablet) 200 mg PO QDAY [facility] Last Admin: 12/19/22 08:18 Dose: 200 mg Ondansetron HCl (Ondansetron 4 Mg/2 Ml Vial) 4 mg IV Q4HP PRN PRN Reason: Nausea And Vomiting Oxycodone HCl (Oxycodone Ir 5 Mg Tablet) 5 - 10 mg PO Q4-6HP PRN; Protocol PRN Reason: Per Pain Protocol Last Admin: 12/17/22 13:57 Dose: 10 mg Polyethylene Glycol (Polyethylene Glycol 3350 17 Gm Packet) 17 gm PO DAILYP PRN PRN Reason: Constipation Last Admin: 12/17/22 09:13 Dose: 17 gm Polyethylene Glycol (Polyethylene Glycol 3350 17 Gm Packet) 17 gm PO DAILY [facility] Last Admin: 12/19/22 08:18 Dose: Not Given Potassium Chloride (Potassium Chloride 20 Meq Tablet) 40 meq PO UD PRN PRN Reason: Potssium is 3-3.5 Potassium Chloride (Potassium Chloride 20 Meq Tablet) 40 meq PO UD PRN PRN Reason: Potassium < 3 Senna (Sennosides 1 Tablet) 2 tab PO DAILYP PRN PRN Reason: Constipation Last Admin: 12/18/22 11:27 Dose: 2 tab Simvastatin (Simvastatin 10 Mg Tablet) 10 mg PO HS [facility] Last Admin: 12/19/22 20:44 Dose: 10 mg Sodium Chloride (0.9 % Sodium Chloride 10 Ml Syringe) 10 ml IV Q8 [facility] Last Admin: 12/20/22 05:50 Dose: 10 ml Sodium Chloride (0.9 % Sodium Chloride 10 Ml Syringe) 10 ml IV Q12 [facility] Last Admin: 12/19/22 20:45 Dose: 10 ml Vancomycin HCl (Vancomycin Per Pharmacy) 1 order IV UD [facility]; Protocol Vitamin D (Vitamin D3 25 Mcg Tablet) 25 mcg PO QDAY [facility] Last Admin: 12/19/22 08:17 Dose: 25 mcg Zinc Sulfate (Zinc Sulfate 50 Mg Capsule) 50 mg PO QDAY [facility] Last Admin: 12/19/22 08:19 Dose: 50 mg A/P Narrative A/P Narrative: A: *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 Murry for wound mgmnt -antibiotics per surgery, possibly augmentin upon d/c but will defer to surgery -Monitor vitals closely -prn QHS cpap -restarted home norvasc(keep at 5qd given BP and peripheral edema), restart home ARB if BP requires, restart HCTZ -lasix x1, TEDs -cont statin -Bowel regimen -PT/OT -CM for placement needs -ppx: lovenox bid (restat home warfarin) Time Spent With Patient Time: Total time spent is greater than 50% in coordination of care (as documented) at patient's floor/unit and/or counseling patient: Subsequent: Total time with patient: 35 - 49 minutes QUALITY VTE Deep Vein Thrombosis/Pulmonary Embolism Present on Admission: No
[2022-12-20] MEDS: amLODIPine 5 MG TABLET PO SCH (08:26)
[2022-12-20] MEDS ORDERED: FUROSEMIDE 20 MG/2 ML VIAL IV ONE (08:26)
[2022-12-20] MEDS: VITAMIN D3 25 MCG TABLET PO SCH (08:27)
[2022-12-20] MEDS: DOCUSATE SODIUM 100 MG CAPSULE PO SCH (08:28)
[2022-12-20] MEDS: MAGNESIUM OXIDE 400 MG TABLET PO SCH (08:28)
[2022-12-20] MEDS: HYDROCHLOROTHIAZIDE 25 MG TABLET PO SCH (08:28)
[2022-12-20] MEDS: POLYETHYLENE GLYCOL 3350 17 GM PACKET PO SCH (08:29)
[2022-12-20] MEDS: ZINC SULFATE 50 MG CAPSULE PO SCH (08:29)
[2022-12-20] MEDS: CALCIUM W/VIT D3 500 MG TABLET PO SCH (08:29)
[2022-12-20] MEDS: ENOXAPARIN 100 MG/ML SYRINGE SQ SCH ×2 (08:29→20:50)
[2022-12-20] MEDS: VANCOMYCIN 1,500 MG in 0.9 % SODIUM CHLORIDE 500 ML IV SCH ×2 (08:30→20:51)
[2022-12-20] MEDS: ASCORBIC ACID 500 MG TABLET PO SCH ×2 (08:30→20:51)
[2022-12-20] MEDS: IPRATROPIUM/ALBUTEROL 3 ML AMPUL.NEB NEB PRN (13:05)
--- NOTE | 2022-12-20 13:25 | General Surgery Progress Note ---
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 Chief Complaint: [] looks and feels well today, pain is minimal and otherwise doing well Constitutional Vitals: Vital Signs Temp Pulse Resp BP Pulse Ox O2 Del Method O2 Flow Rate 98.2 F 74 36 H 106/61 92 Nasal Cannula 1 12/20/22 12:00 12/20/22 12:00 12/20/22 12:00 12/20/22 12:00 12/20/22 12:00 12/20/22 12:00 12/20/22 12:00 Period Temp Pulse Resp BP Sys/Stinson Pulse Ox O2 Del Method O2 Flow Rate Last 24 Hr 98.1 F-99.1 F 73-84 16-36 106-139/53-79 91-96 Nasal Cannula- Room Air 1-2 Intake and Output 12/20/22 12/20/22 12/20/22 03:59 11:59 19:59 Intake Total 906 1446 296 Output Total 1625 400 200 Balance -719 1046 96 Weight 262 lb Intake & Output: Intake & Output 12/20/22 12/20/22 12/20/22 03:59 11:59 19:59 Intake Total 906 1446 296 Output Total 1625 400 200 Balance -719 1046 96 Weight 262 lb Intake: IV 606 606 56 Cleocin 900 mg In Dextrose 5% 56 56 56 in Water 50 ml @ 100 mls/hr IV Q6H JOSEPH Rx#:[id number] Merrem 1 gm In Sodium Chloride 50 50 0.9% 50 ml @ 100 mls/hr IV Q8H JOSEPH Rx#:[id number] Vancomycin 1,500 mg In Sodium 500 500 Chloride 0.9% 500 ml @ 333.3 mls/hr IV Q12H JOSEPH Rx#: [id number] Oral 300 840 240 Output: Void Amount 1625 400 200 Other: Meal Breakfast Percent of Meal Consumed 100% Urine Appearance Clear Clear Clear Urine Color Yellow Yellow Yellow Exam: Looks well, non toxic pleasantly conversant Respiratory Respiratory exam: Present normal respiratory exam Cardiovascular Cardiovascular exam: Present normal rate and rhythm GI/Abdominal Additional comments: soft and non tender, non distended Additional comments: VAC in place Extremities Exam Additional comments: well perfused A/P Assessment and plan (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
[2022-12-20] MEDS ORDERED: WARFARIN 5 MG TABLET PO ONE (14:00)
[2022-12-20] MEDS: SIMVASTATIN 10 MG TABLET PO SCH (20:51)
[2022-12-21] MEDS: CLINDAMYCIN 900 MG in DEXTROSE 5% IN WATER 50 ML IV SCH ×2 (05:57→12:11)
[2022-12-21] MEDS: MEROPENEM 1 GM in 0.9 % SODIUM CHLORIDE 50 ML IV SCH ×2 (05:57→13:54)
[2022-12-21] MEDS: 0.9 % SODIUM CHLORIDE 10 ML SYRINGE IV SCH ×3 (06:28→13:54)
[2022-12-21 06:38] LABS: INR 1.1 (0.9-1.1); Prothrombin Time 14.8 sec (11.9-14.5)
--- NOTE | 2022-12-21 08:10 | Internal Med Progress Note ---
SUBJECTIVE Subjective Patient information: Note initiated : 12/21/22 at 8:08 am Service Date, if different from initiated Date: [] Patient: Todd Garcia 77 y/o M admitted on 12/16/22 for Gangrene Perineum. Chief Complaint: [] Interval history: Chief Complaint: [] cc:: CC: pt presents to ED with rectal/perineum pain and swelling and redness. He first went to see his certified pharmacy tech on Saturday and was given an antibiotic, Possibly diagnosed with furuncle. But he has had increased swelling to been spreading of the redness and increased pain and presents back to the ED. He complains of chills but no fevers. Is painful to sit for long periods of time. He had some discharge as well. 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 Dr. Murry was contacted. Patient be taken to the OR for debridement today. Patient has history of DVT hypertension obesity. Hospitalist consulted for comanagement. Patient started on antibiotics and IV fluids in the ED. Patient does take warfarin for history of DVT and currently in the process of being reversed 12/17 Patient slept okay. Feels constipated. Some discomfort around the surgical site but pain relatively controlled. Patient had I&D of necrotic perineal tissue yesterday. We will start him on Lovenox twice daily instead of warfarin until further debridements ruled out. 12/18 Mediocre sleep which is normal for him. No overnight event or new complaints. No leukocytosis on follow-up labs. pt Developing lower extremity, will stop IV fluids. 12/19 Patient feels congested this morning. Patient also is up on fluid balance. We will give IV Lasix x1. And does have some edema in the legs mild. Otherwise no new complaints. Patient seems to be feeling relatively well otherwise. Pending further surgeon recommendations 12/20 Patient feeling pretty good other than developing diarrhea. Wanting to increase his diet. Wound VAC being set up. White blood cell count remains normal and no fevers. 12/21 No overnight event or new complaints. Mediocre sleep last night. Good urine output with Lasix x1 yesterday and decreased peripheral edema. Wound cultures finalized. Warfarin started yesterday and bridging with Lovenox. Review of Systems: Pertinent positives as above. Denies headache/fever/nausea/vomiting/chest or abdominal pain/cough/dyspnea/diarrhea. PHYSICAL EXAM General: Alert, Awake, No acute Distress, obese Eyes/N/T: EOMI, no scleral icterus, Head/Neck: neck supple, full ROM, CV: RRR, No murmurs, Pulm: no rhonchi/rales today, no wheezing, no respiratory distress Abd: soft, nontender, +BS x4 Ext: no clubbing/cyanosis, 1+ b/l LE edema improving, nontender Neuro: Alert, no focal deficits, moves all extremities, , sensations intact b/l upper/lower Psychiatric: Skin: warm/dry, normal color Constitutional Vitals: Vital Signs Temp Pulse Resp BP Pulse Ox O2 Del Method O2 Flow Rate 98.1 F 73 20 134/81 92 Room Air 1 12/21/22 03:30 12/21/22 03:30 12/21/22 03:30 12/21/22 03:30 12/21/22 03:30 12/21/22 03:30 12/20/22 12:00 Period Temp Pulse Resp BP Sys/Stinson Pulse Ox O2 Del Method O2 Flow Rate Last 24 Hr 98.1 F-99.0 F 73-91 16-36 106-145/61-83 91-95 Nasal Cannula-R oom Air 1 Intake and Output 12/20/22 12/21/22 12/21/22 19:59 03:59 11:59 Intake Total 842 1006 106 Output Total 800 1525 Balance 42 -519 106 Weight 120.066 kg Intake & Output: Intake & Output 12/20/22 12/21/22 12/21/22 19:59 03:59 11:59 Intake Total 842 1006 106 Output Total 800 1525 Balance 42 -519 106 Weight 120.066 kg Intake: IV 162 606 106 Cleocin 900 mg In Dextrose 5% 112 56 56 in Water 50 ml @ 100 mls/hr IV Q6H JOSEPH Rx#:[id number] Merrem 1 gm In Sodium Chloride 50 50 50 0.9% 50 ml @ 100 mls/hr IV Q8H JOSEPH Rx#:[id number] Vancomycin 1,500 mg In Sodium 500 Chloride 0.9% 500 ml @ 333.3 mls/hr IV Q12H JOSEPH Rx#: [id number] Oral 680 400 Output: Void Amount 800 1525 Other: Meal Dinner Percent of Meal Consumed 100% Feeding Ability Independent Urine Appearance Clear Clear Urine Color Yellow Yellow Stool Size Small Small Stool Color Brown Brown Stool Consistency Loose Loose # Voids 1 1 # Bowel Movements 1 OBJ DATA Labs 12/19/22 05:30 12/19/22 10:57 Labs: Abnormal Lab Results 12/21/22 12/19/22 12/19/22 05:34 10:57 05:30 RBC 4.23 L Hgb 13.0 L Hct 39.7 L [place] % (Auto) Lymph # (Auto) PT 14.8 H Glucose 107 H Calcium Albumin 12/19/22 12/18/22 12/18/22 05:15 05:32 05:32 RBC 4.14 L Hgb 12.5 L Hct 38.1 L [place] % (Auto) 13.8 H Lymph # (Auto) 0.97 L PT 14.9 H Glucose 117 H Calcium 8.5 L Albumin 3.0 L Meds: Medications Albuterol Sulfate (Albuterol Sulfate 60 Puff Inhaler) 2 puff INH Q6HP PRN PRN Reason: shortness of breath or wheezing Albuterol/Ipratropium (Ipratropium/Albuterol 3 Ml Ampul.Neb) 3 ml NEB Q4HP PRN PRN Reason: Shortness Of Breath Last Admin: 12/20/22 13:05 Dose: 3 ml Amlodipine Besylate (Amlodipine 5 Mg Tablet) 5 mg PO DAILY [facility] Last Admin: 12/20/22 08:26 Dose: 5 mg Ascorbic Acid (Ascorbic Acid 500 Mg Tablet) 1,000 mg PO Q12H [facility] Last Admin: 12/20/22 20:51 Dose: 1,000 mg Calcium/Vitamin D (Calcium W/Vit D3 500 Mg Tablet) 500 mg PO QDAY [facility] Last Admin: 12/20/22 08:29 Dose: 500 mg Enoxaparin Sodium (Enoxaparin 100 Mg/Ml Syringe) 100 mg SQ BID [facility] Last Admin: 12/20/22 20:50 Dose: Not Given Guaifenesin (Guaifenesin 600 Mg Tab.Sr.12h) 600 mg PO BIDP PRN PRN Reason: Congestion Heparin Sodium (Porcine) (Heparin Flush 10 Units/Ml 5 Ml Syringe) 2 ml IV Q12 [facility] Last Admin: 12/20/22 20:50 Dose: 2 ml Hydrochlorothiazide (Hydrochlorothiazide 25 Mg Tablet) 25 mg PO QAM [facility] Last Admin: 12/20/22 08:28 Dose: 25 mg Hydromorphone HCl (Hydromorphone 0.5 Mg/0.5 Ml Syringe) 0.5 - 1 mg IV Q1HP PRN; Protocol PRN Reason: Per Pain Protocol Last Admin: 12/18/22 15:50 Dose: 0.5 mg Potassium Chloride 40 meq/ (Dextrose) 520 mls @ 130 mls/hr IV UD PRN PRN Reason: Potassium < 3 Magnesium Sulfate (Magnesium Sulfate) 2 gm in 50 mls @ 50 mls/hr IV UD PRN PRN Reason: Magnesium </= 1.6 Meropenem 1 gm/ Sodium (Chloride) 50 mls @ 100 mls/hr IV Q8H [facility]; Protocol Last Infusion: 12/21/22 06:29 Dose: Infused Vancomycin HCl 1,500 mg/ (Sodium Chloride) 500 mls @ 333.3 mls/hr IV Q12H [facility] Last Infusion: 12/20/22 22:45 Dose: Infused Clindamycin Phosphate 900 mg/ (Dextrose) 56 mls @ 100 mls/hr IV Q6H [facility] Last Infusion: 12/21/22 06:29 Dose: Infused Magnesium Oxide (Magnesium Oxide 400 Mg Tablet) 200 mg PO QDAY [facility] Last Admin: 12/20/22 08:28 Dose: 200 mg Ondansetron HCl (Ondansetron 4 Mg/2 Ml Vial) 4 mg IV Q4HP PRN PRN Reason: Nausea And Vomiting Oxycodone HCl (Oxycodone Ir 5 Mg Tablet) 5 - 10 mg PO Q4-6HP PRN; Protocol PRN Reason: Per Pain Protocol Last Admin: 12/17/22 13:57 Dose: 10 mg Polyethylene Glycol (Polyethylene Glycol 3350 17 Gm Packet) 17 gm PO DAILYP PRN PRN Reason: Constipation Last Admin: 12/17/22 09:13 Dose: 17 gm Polyethylene Glycol (Polyethylene Glycol 3350 17 Gm Packet) 17 gm PO DAILY [facility] Last Admin: 12/20/22 08:29 Dose: 17 gm Potassium Chloride (Potassium Chloride 20 Meq Tablet) 40 meq PO UD PRN PRN Reason: Potssium is 3-3.5 Potassium Chloride (Potassium Chloride 20 Meq Tablet) 40 meq PO UD PRN PRN Reason: Potassium < 3 Senna (Sennosides 1 Tablet) 2 tab PO DAILYP PRN PRN Reason: Constipation Last Admin: 12/18/22 11:27 Dose: 2 tab Simvastatin (Simvastatin 10 Mg Tablet) 10 mg PO HS [facility] Last Admin: 12/20/22 20:51 Dose: 10 mg Sodium Chloride (0.9 % Sodium Chloride 10 Ml Syringe) 10 ml IV Q8 [facility] Last Admin: 12/21/22 06:28 Dose: 10 ml Sodium Chloride (0.9 % Sodium Chloride 10 Ml Syringe) 10 ml IV Q12 [facility] Last Admin: 12/20/22 20:52 Dose: 10 ml Vancomycin HCl (Vancomycin Per Pharmacy) 1 order IV UD JOSEPH; Protocol Vitamin D (Vitamin D3 25 Mcg Tablet) 25 mcg PO QDAY [facility] Last Admin: 12/20/22 08:27 Dose: 25 mcg Warfarin Sodium (Warfarin Per Pharmacy) 1 order PO UD JOSEPH Zinc Sulfate (Zinc Sulfate 50 Mg Capsule) 50 mg PO QDAY [facility] Last Admin: 12/20/22 08:29 Dose: 50 mg A/P Narrative A/P Narrative: A: *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 Murry for wound mgmnt -antibiotics per surgery, possibly augmentin upon d/c but will defer to surgery -Monitor vitals closely -prn QHS cpap -restarted home norvasc(keep at 5qd given BP and peripheral edema), restart home ARB if BP requires, restart HCTZ -prn lasix, TEDs -cont statin -Bowel regimen -PT/OT -CM for placement needs -ppx: lovenox bid (restated home warfarin) Time Spent With Patient Time: Total time spent is greater than 50% in coordination of care (as documented) at patient's floor/unit and/or counseling patient: Subsequent: Total time with patient: 35 - 49 minutes QUALITY VTE Deep Vein Thrombosis/Pulmonary Embolism Present on Admission: No
[2022-12-21] MEDS: IPRATROPIUM/ALBUTEROL 3 ML AMPUL.NEB NEB PRN (08:30)
[2022-12-21] MEDS ORDERED: VANCOMYCIN 1,250 MG in 0.9 % SODIUM CHLORIDE 500 ML IV SCH (09:00)
[2022-12-21] MEDS: ZINC SULFATE 50 MG CAPSULE PO SCH (09:11)
[2022-12-21] MEDS: amLODIPine 5 MG TABLET PO SCH (09:11)
[2022-12-21] MEDS: HYDROCHLOROTHIAZIDE 25 MG TABLET PO SCH (09:11)
[2022-12-21] MEDS: ENOXAPARIN 100 MG/ML SYRINGE SQ SCH (09:12)
[2022-12-21] MEDS: MAGNESIUM OXIDE 400 MG TABLET PO SCH (09:12)
[2022-12-21] MEDS: VITAMIN D3 25 MCG TABLET PO SCH (09:12)
[2022-12-21] MEDS: CALCIUM W/VIT D3 500 MG TABLET PO SCH (09:12)
[2022-12-21] MEDS: POLYETHYLENE GLYCOL 3350 17 GM PACKET PO SCH (09:24)
[2022-12-21] MEDS: ASCORBIC ACID 500 MG TABLET PO SCH (09:24)
--- NOTE | 2022-12-21 09:40 | General Surgery Progress Note ---
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 Chief Complaint: [] Doing well, feels ready for discharge and home wound VAC has been approved Constitutional Vitals: Vital Signs Temp Pulse Resp BP Pulse Ox O2 Del Method O2 Flow Rate 98.1 F 80 20 134/81 92 Room Air 1 12/21/22 03:30 12/21/22 08:30 12/21/22 08:30 12/21/22 03:30 12/21/22 08:30 12/21/22 03:30 12/20/22 12:00 Period Temp Pulse Resp BP Sys/Stinson Pulse Ox O2 Del Method O2 Flow Rate Last 24 Hr 98.1 F-99.0 F 73-91 16-36 106-145/61-83 91-95 Nasal Cannula- Room Air 1 Intake and Output 12/20/22 12/21/22 12/21/22 19:59 03:59 11:59 Intake Total 842 1006 106 Output Total 800 1525 Balance 42 -519 106 Weight 264 lb 11.2 oz Intake & Output: Intake & Output 12/20/22 12/21/22 12/21/22 19:59 03:59 11:59 Intake Total 842 1006 106 Output Total 800 1525 Balance 42 -519 106 Weight 264 lb 11.2 oz Intake: IV 162 606 106 Cleocin 900 mg In Dextrose 5% 112 56 56 in Water 50 ml @ 100 mls/hr IV Q6H JOSEPH Rx#:[id number] Merrem 1 gm In Sodium Chloride 50 50 50 0.9% 50 ml @ 100 mls/hr IV Q8H JOSEPH Rx#:[id number] Vancomycin 1,500 mg In Sodium 500 Chloride 0.9% 500 ml @ 333.3 mls/hr IV Q12H JOSEPH Rx#: [id number] Oral 680 400 Output: Void Amount 800 1525 Other: Meal Dinner Percent of Meal Consumed 100% Feeding Ability Independent Urine Appearance Clear Clear Urine Color Yellow Yellow Stool Size Small Small Stool Color Brown Brown Stool Consistency Loose Loose # Voids 1 1 # Bowel Movements 1 Exam: looks well non toxic, NAD Respiratory Respiratory exam: Present normal respiratory exam Cardiovascular Cardiovascular exam: Present normal rate and rhythm GI/Abdominal Additional comments: soft, benign, non tender Extremities Exam Additional comments: well perfused A/P Assessment and plan (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
[2022-12-21] MEDS: oxyCODONE IR 5 MG TABLET PO PRN (10:22)
[2022-12-21] MEDS: HYDROmorphone 0.5 MG/0.5 ML SYRINGE IV PRN (10:50)
[2022-12-21] MEDS ORDERED: WARFARIN 5 MG TABLET PO SCH (14:00)
--- NOTE | 2022-12-31 08:21 | Discharge Summary ---
DATE OF ADMISSION: 12/16/2022 DATE OF DISCHARGE: 12/21/2022 DATE OF ADMISSION: 12/16/2022 DATE OF DISCHARGE: 12/21/2022 ADMITTING PHYSICIAN: Godwin Murry M.D. DISCHARGING PHYSICIAN: Godwin Murry M.D. ADMITTING DIAGNOSIS: Nara's gangrene. DISCHARGE DIAGNOSES: Nara gangrene. INDICATIONS FOR ADMISSION COURSE: The patient is a 77-year-old male who presented to the Emergency Room on 12/16/2022 with perineal pain and discomfort. He was seen and examined. Imaging was obtained, all of which demonstrated findings consistent with a perineal infection and Nara's gangrene. We were asked to see him in consultation and recommended emergency surgery. Risks, benefits, potential complications, and alternative treatment options were all discussed at length with he and his . The details of the procedure can be found in separately dictated operative report. He was taken to the operating room and underwent the procedure and then was transported from there to the floor. In the ensuing days, he did very well. His infection was controlled nicely with the aforementioned debridement as well as IV antibiotics. The VAC dressing was placed on postop day #2 and he did very well in the ensuing days, and he was felt ready for discharge by 12/21/2022. IN HOSPITAL PROCEDURES: Examination under anesthesia, on 12/16/2022, with incision and drainage and debridement of perineal Nara's gangrene. DISPOSITION: Discharged home with followup in clinic. COMPLICATIONS: None apparent. BW:[email or web address] Job ID: [id number] Doc ID: [id number] Godwin Murry M.D.
== END 2022-12-21 17:40 | disposition home or self-care (01) | DRG 727 ==
LOC: ED 09:40 → SUR 16:05 → MEDSUR 18:05
PROVIDERS: ADMIT Surgery Surgical Critical Care; ATTEND Surgery Surgical Critical Care